=== PATIENT | female | born 1990 | race Caucasian/White ===

== ENCOUNTER 2017-02-01 14:56 | Inpatient (IN) | payer BC ==
[2017-02-01] MEDS ORDERED: Lactated Ringers 1,000 ML ONE (17:21)
[2017-02-01] MEDS ORDERED: Oxytocin/Lactated Ringers 10 UNIT/1,000 ML BAG IV ONE (17:22)
[2017-02-01] MEDS ORDERED: Nalbuphine 20 MG/1 ML Amp IVPUSH PRN (17:38)
[2017-02-01] MEDS ORDERED: Ondansetron 4 MG/2 ML SDV IVPUSH PRN (17:38)
[2017-02-01] MEDS ORDERED: Sodium Chloride 0.9% 10 ML Syringe FLUSH PRN (17:38)
--- NOTE | 2017-02-01 17:43 | PCM.LDHP ---
L&D History of Present Illness - General Date of Service: 02/01/17 Admit Problem/Dx: Patient Status Order with Admit Dx/Problem 02/01/17 15:31 Patient Status [ADT] Routine 02/01/17 17:39 Patient Status [ADT] Routine Admission Diagnosis/Problem Admission Diagnosis/Problem Source of Information: Patient History Limitations: Reports: No Limitations - History of Present Illness Introduction:: Patient is a 26 y/o at 38 0/7 wks. She was seen in clinic earlier today for routine appointment and noted issues with some intermittent headaches. BP' s in office were both upper limit of normal. This was a departure from her normal BP's. Was thus sent to L&D for serial BP's, labs, and NST. Otherwise doing well. No contractions. Getting good FM. 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 (Approximate): - Infectious Disease History Infectious Disease History: Reports: Other (See Below) ([place] Spotted Fever as a child) - Past Surgical History HEENT Surgical History: Reports: Oral Surgery (wisdom tooth extraction) Social & Family History - Tobacco Use Smoking Status *Q: Never Smoker Second Hand Smoke Exposure: No - Alcohol Use Alcohol Use History: No - Recreational Drug Use Recreational Drug Use: No H&P Review of Systems - Review of Systems: Review Of Systems: See Below General: Reports: No Symptoms Pulmonary: Reports: No Symptoms Cardiovascular: Reports: No Symptoms Gastrointestinal: Reports: No Symptoms Genitourinary: Reports: No Symptoms Musculoskeletal: Reports: No Symptoms Neurological: Reports: Headache (For a few days last week, not present currently ) L&D Exam - Exam Exam: See Below - Vital Signs Vital Signs: Last Vital Signs Temp Pulse 90 02/01/17 16:00 Resp BP 136/84 02/01/17 16:00 Pulse Ox Weight: 116.12 kg - OB Specific Contraction Intensity: Irritability Movement: Active Heart Tones: Present Heart Tones per Min: 150 Heart Rate (FHR) Variability: Moderate (6-25 bmp) Presentation: Vertex - Hernandez Score Hernandez Score Cervix Position: Posterior Hernandez Score Consistency: Soft Hernandez Score Effacement: >80% Hernandez Score Dilation: 1-2 cm Hernandez Score Infant's Station: -2 Hernandez Score Total: 7 - Exam General: Alert, Oriented, Cooperative Lungs: Clear to Auscultation, Normal Respiratory Effort Cardiovascular: Regular Rate, Regular Rhythm GI/Abdominal Exam: Soft, Non-Tender Genitourinary: Normal external exam Extremities: Normal Inspection Skin: Warm, Dry, Intact Neurological: Reflexes Equal Bilateral DTR: 2+: Patella (L), Patella (R) - Patient Data Lab Results Last 24 hrs: Laboratory Results - last 24 hr 02/01/17 02/01/17 02/01/17 Range/Units 15:50 15:50 15:50 WBC 9.85 (3.98-10.04) K/mm3 RBC 4.21 (3.98-5.22) M/mm3 Hgb 13.0 (11.2-15.7) gm/L Hct 37.2 (34.1-44.9) % MCV 88.4 (79.4-94.8) fl MCH 30.9 (25.6-32.2) pg MCHC 34.9 (32.2-35.5) g/dl RDW Std Deviation 40.4 (36.4-46.3) fL Plt Count 252 (182-369) K/mm3 MPV 10.1 (9.4-12.3) fl Creatinine 0.6 (0.55-1.02) mg/dL Est Cr Clr Drug Dosing 160.20 mL/min Estimated GFR (MDRD) > 60 (>60) mL/min AST 19 (15-37) U/L ALT 28 (14-59) U/L Blood Type A POSITIVE Gel Antibody Screen Negative Result Diagrams: 02/01/17 15:50 02/01/17 15:50 - Problem List (1) 38 weeks gestation of SNOMED Code(s): 09412428 ICD Code: Z3A.38 - 38 WEEKS GESTATION OF Status: Acute Current Visit: Yes (2) Gestational hypertension SNOMED Code(s): 50518307 ICD Code: O13.9 - GESTATIONAL HTN W/O SIGNIFICANT PROTEINURIA, UNSP TRIMESTER Status: Acute Current Visit: Yes Qualifiers: Trimester: third trimester Qualified Code(s): O13.3 - Gestational [ -induced] hypertension without significant proteinuria, third trimester (3) GBS (group B Streptococcus carrier), +RV culture, currently SNOMED Code(s): 28255904 ICD Code: O99.820 - STREPTOCOCCUS B CARRIER STATE COMPLICATING Status: Acute Current Visit: Yes Problem List Initiated/Reviewed/Updated: Yes Orders Last 24hrs: Active Orders 24 hr Category Date Time Status Patient Status [ADT] Routine ADT 02/01/17 15:31 Active Patient Status [ADT] Routine ADT 02/01/17 17:39 Active Communication Order [RC] ASDIRECTED Care 02/01/17 17:38 Active Communication Order [RC] ASDIRECTED Care 02/01/17 17:38 Active Communication Order [RC] ASDIRECTED Care 02/01/17 17:38 Active Heart Tones [RC] ASDIRECTED Care 02/01/17 17:38 Active Non Stress Test [RC] PER UNIT ROUTINE Care 02/01/17 15:31 Active Notify Provider [RC] ASDIRECTED Care 02/01/17 17:38 Active Notify Provider [RC] PRN Care 02/01/17 17:38 Active Peripheral IV Care [RC] . DIRECTED Care 02/01/17 17:38 Active Up ad Leeann [RC] ASDIRECTED Care 02/01/17 17:38 Active Vaginal Exam [RC] ASDIRECTED Care 02/01/17 17:38 Active Vital Signs [RC] ASDIRECTED Care 02/01/17 17:38 Active Vital Signs [RC] PER UNIT ROUTINE Care 02/01/17 15:31 Active Regular Diet [DIET] Diet 02/01/17 Dinner Active PATIENT RETYPE [BBK] Routine Lab 02/01/17 15:50 Results TYPE AND SCREEN [BBK] Routine Lab 02/01/17 15:50 Results Lactated Ringers [Ringers, Lactated] 1,000 ml Med 02/01/17 17:45 Ordered IV ASDIRECTED Nalbuphine [Nubain] Med 02/01/17 17:38 Ordered 10 mg IVPUSH Q2H PRN Ondansetron [Zofran] Med 02/01/17 17:38 Ordered 4 mg IVPUSH Q4H PRN Oxytocin/Lactated Ringers [Pitocin in LR 10 Units/1,000 Med 02/01/17 17:45 Ordered ML] 10 unit in 1,000 ml IV .CONTINUOUS Oxytocin/Lactated Ringers [Pitocin in LR 10 Units/1,000 Med 02/01/17 17:45 Ordered ML] 10 unit in 1,000 ml IV TITRATE Penicillin G Potassium [Pfizerpen] 2.5 millunits Med 02/01/17 17:45 Ordered Sodium Chloride 0.9% [Normal Saline] 100 ml IV Q4H Penicillin G Potassium [Pfizerpen] 5 millunits Med 02/01/17 17:45 Ordered Sodium Chloride 0.9% [Normal Saline] 100 ml IV ONETIME Sodium Chloride 0.9% [Saline Flush] Med 02/01/17 17:38 Ordered 10 ml FLUSH ASDIRECTED PRN Electronic Heart Tones Ext w TOCO [WOMSER] Oth 02/01/17 17:38 Ordered Routine Electronic Heart Tones Internal [WOMSER] Per Unit Ot 02/01/17 17:38 Ordered Routine Peripheral IV Insertion Adult [OM.PC] Routine Oth 02/01/17 17:38 Ordered Resuscitation Status Routine Resus Stat 02/01/17 15:31 Ordered Medication Orders Lactated Ringer's (Ringers, Lactated) 1,000 mls @ 40 mls/hr IV ASDIRECTED AROLDO Oxytocin/Lactated Ringer's (Pitocin In Lr 10 Units/1,000 Ml) 10 unit in 1,000 mls @ 12 mls/hr IV TITRATE AROLDO; 2 MUNITS/MIN PRN Reason: Protocol Penicillin G Potassium 5 (millunits/ Sodium Chloride) 100 mls @ 55 mls/hr IV ONETIME AROLDO Penicillin G Potassium 2.5 (millunits/ Sodium Chloride) 100 mls @ 55 mls/hr IV Q4H AROLDO Oxytocin/Lactated Ringer's (Pitocin In Lr 10 Units/1,000 Ml) 10 unit in 1,000 mls @ 500 mls/hr IV .CONTINUOUS AROLDO Nalbuphine HCl (Nubain) 10 mg IVPUSH Q2H PRN PRN Reason: Pain (moderate 4-6) Ondansetron HCl (Zofran) 4 mg IVPUSH Q4H PRN PRN Reason: Nausea/Vomiting Sodium Chloride (Saline Flush) 10 ml FLUSH ASDIRECTED PRN PRN Reason: Keep Vein Open Assessment/Plan Comment:: 26 y/o at 38 0/7 wks who presented for serial BP's/monitoring. Has had one severe range BP in addition to multiple mild range BP's. Recommend proceeding with IOL given gestational age. She agrees. Labs done and WNL. Will start PCN for GBS prophylaxis. Pitocin to be started for IOL. WIll consdier bolivar bulb placement later. Pain management per patient preference. Anticipate
[2017-02-01] MEDS ORDERED: Oxytocin/Lactated Ringers 10 UNIT/1,000 ML BAG IV SCH (17:45)
[2017-02-01] MEDS ORDERED: Penicillin G Potassium 5 MILLUNITS in Sodium Chloride 0.9% 100 ML IV SCH (18:00)
[2017-02-01] MEDS: Oxytocin/Lactated Ringers 10 UNIT/1,000 ML BAG IV SCH (18:15)
[2017-02-01] MEDS: Lactated Ringers 1,000 ML IV SCH (18:15)
--- NOTE | 2017-02-01 20:59 | PCM.PNLD ---
Labor Progress Note - VS & Meds Vital Signs: Last Vital Signs Temp 36.6 C 02/01/17 18:00 Pulse 90 02/01/17 18:00 Resp 18 02/01/17 18:00 BP 144/85 H 02/01/17 18:00 Pulse Ox Active Medications: Current Medications Lactated Ringer's (Ringers, Lactated) 1,000 mls @ 40 mls/hr IV ASDIRECTED AROLDO Last Admin: 02/01/17 18:15 Dose: 40 mls/hr Oxytocin/Lactated Ringer's (Pitocin In Lr 10 Units/1,000 Ml) 10 unit in 1,000 mls @ 12 mls/hr IV TITRATE AROLDO; 2 MUNITS/MIN PRN Reason: Protocol Last Titration: 02/01/17 20:24 Dose: 8 munits/min, 48 mls/hr Penicillin G Potassium 5 (millunits/ Sodium Chloride) 100 mls @ 55 mls/hr IV ONETIME AROLDO Last Admin: 02/01/17 18:38 Dose: 55 mls/hr Penicillin G Potassium 2.5 (millunits/ Sodium Chloride) 100 mls @ 55 mls/hr IV Q4H AROLDO Oxytocin/Lactated Ringer's (Pitocin In Lr 10 Units/1,000 Ml) 10 unit in 1,000 mls @ 500 mls/hr IV .CONTINUOUS AROLDO Nalbuphine HCl (Nubain) 10 mg IVPUSH Q2H PRN PRN Reason: Pain (moderate 4-6) Ondansetron HCl (Zofran) 4 mg IVPUSH Q4H PRN PRN Reason: Nausea/Vomiting Sodium Chloride (Saline Flush) 10 ml FLUSH ASDIRECTED PRN PRN Reason: Keep Vein Open Discontinued Medications Lactated Ringer's (Ringers, Lactated) Confirm Administered Dose 1,000 mls @ as directed .ROUTE .STK-MED ONE Stop: 02/01/17 17:22 Last Admin: 02/01/17 18:42 Dose: Not Given Oxytocin/Lactated Ringer's (Pitocin In Lr 10 Units/1,000 Ml) Confirm Administered Dose 10 unit in 1,000 mls @ as directed IV .STK-MED ONE Stop: 02/01/17 17:23 Last Admin: 02/01/17 18:42 Dose: Not Given - Uterine Contractions Uterine Monitoring Mode: External [place] Contraction Intensity: Mild to Moderate Uterine Resting Tone: Soft - Monitoring Monitor Mode: External Ultrasound Heart Rate (FHR) Baseline: 135 Heart Rate (FHR) Variability: Moderate (6-25 bmp) Accelerations: Present, 15x15 Decelerations: None Strip Review: Category I - Vaginal Exam Dilation (cm): 2.5 Effacement (Percent): 80 Station: -2 Cervical Position: Midposition - Labor Progress (Free Text) Labor Progress: Doing well. Pitocin at 8. Singer bulb placed to aid in induction process
[2017-02-01] MEDS ORDERED: Penicillin G Potassium 2.5 MILLUNITS in Sodium Chloride 0.9% 100 ML IV SCH (22:00)
[2017-02-01] MEDS: Penicillin G Potassium 2.5 MILLUNITS in Sodium Chloride 0.9% 100 ML IV SCH (22:50)
[2017-02-02] MEDS ORDERED: fentaNYL 100 MCG/2 ML SDV EPIDUR PRN ×2 (01:00→08:29)
[2017-02-02] MEDS ORDERED: ePHEDrine 50 MG/ML SDV IVPUSH PRN ×2 (01:00→08:29)
[2017-02-02] MEDS ORDERED: Ondansetron 4 MG/2 ML SDV IVPUSH PRN (01:00)
[2017-02-02] MEDS ORDERED: Bupivacaine/fentaNYL/NS 100 ML Bag EPIDUR SCH ×2 (01:00→08:30)
--- NOTE | 2017-02-02 01:07 | PCM.PREANE ---
Preanesthetic Assessment - Anesthesia/Transfusion/Family Hx Anesthesia History: No Prior Anesthesia Family History of Anesthesia Reaction: No Transfusion History: No Prior Transfusion(s) Intubation History: Unknown - Review of Systems General: No Symptoms Pulmonary: No Symptoms Cardiovascular: No Symptoms (PIH), Palpitations Gastrointestinal: No Symptoms Neurological: No Symptoms Other: Reports: None - Physical Assessment NPO Status Date: 02/01/17 NPO Status Time: 23:30 Pulse: 90 O2 Sat by Pulse Oximetry: 99 Respiratory Rate: 18 Blood Pressure: 136/84 Temperature: 36.6 C Vital Signs: Last Vital Signs Temp 36.6 C 02/01/17 18:00 Pulse 90 02/01/17 18:00 Resp 18 02/01/17 18:00 BP 144/85 H 02/01/17 18:00 Pulse Ox Height: 1.8 m Weight: 116.12 kg ASA Class: 2 Mental Status: Alert & Oriented x3 Airway Class: Mallampati = 2 Dentition: Reports: Normal Dentition, Caries Thyro-Mental Finger Breadths: 3 Mouth Opening Finger Breadths: 3 ROM/Head Extension: Full Lungs: Clear to Auscultation, Normal Respiratory Effort Cardiovascular: Regular Rate, Regular Rhythm, No Murmurs - Lab Values: Laboratory Last Values WBC 9.85 K/mm3 (3.98-10.04) 02/01/17 15:50 RBC 4.21 M/mm3 (3.98-5.22) 02/01/17 15:50 Hgb 13.0 gm/L (11.2-15.7) 02/01/17 15:50 Hct 37.2 % (34.1-44.9) 02/01/17 15:50 MCV 88.4 fl (79.4-94.8) 02/01/17 15:50 MCH 30.9 pg (25.6-32.2) 02/01/17 15:50 MCHC 34.9 g/dl (32.2-35.5) 02/01/17 15:50 RDW Std Deviation 40.4 fL (36.4-46.3) 02/01/17 15:50 Plt Count 252 K/mm3 (182-369) 02/01/17 15:50 MPV 10.1 fl (9.4-12.3) 02/01/17 15:50 Creatinine 0.6 mg/dL (0.55-1.02) 02/01/17 15:50 Est Cr Clr Drug Dosing 160.20 mL/min 02/01/17 15:50 Estimated GFR (MDRD) > 60 mL/min (>60) 02/01/17 15:50 AST 19 U/L (15-37) 02/01/17 15:50 ALT 28 U/L (14-59) 02/01/17 15:50 Blood Type A POSITIVE 02/01/17 15:50 Gel Antibody Screen Negative 02/01/17 15:50 Above labs reviewed and noted. 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 OB/BYN History: PIH - Infectious Disease History Infectious Disease History: Reports: Other (See Below) ([place] Spotted Fever as a child) - Past Surgical History HEENT Surgical History: Reports: Oral Surgery (wisdom tooth extraction) - SUBSTANCE USE Smoking Status *Q: Never Smoker Second Hand Smoke Exposure: No Recreational Drug Use History: No - HOME MEDS Home Medications: Home Meds predniSONE [Prednisone] 20 mg PO DAILY #2 tablet 02/18/15 [Rx] - CURRENT (IN HOUSE) MEDS Current Meds: Current Medications Lactated Ringer's (Ringers, Lactated) 1,000 mls @ 40 mls/hr IV ASDIRECTED AROLDO Last Admin: 02/01/17 18:15 Dose: 40 mls/hr Oxytocin/Lactated Ringer's (Pitocin In Lr 10 Units/1,000 Ml) 10 unit in 1,000 mls @ 12 mls/hr IV TITRATE AROLDO; 2 MUNITS/MIN PRN Reason: Protocol Last Titration: 02/02/17 00:23 Dose: 10 munits/min, 60 mls/hr Penicillin G Potassium 5 (millunits/ Sodium Chloride) 100 mls @ 55 mls/hr IV ONETIME AROLDO Last Admin: 02/01/17 18:38 Dose: 55 mls/hr Oxytocin/Lactated Ringer's (Pitocin In Lr 10 Units/1,000 Ml) 10 unit in 1,000 mls @ 500 mls/hr IV .CONTINUOUS AROLDO Penicillin G Potassium 2.5 (millunits/ Sodium Chloride) 100 mls @ 100 mls/hr IV Q4H [facility] Last Admin: 02/01/17 22:50 Dose: 100 mls/hr Nalbuphine HCl (Nubain) 10 mg IVPUSH Q2H PRN PRN Reason: Pain (moderate 4-6) Ondansetron HCl (Zofran) 4 mg IVPUSH Q4H PRN PRN Reason: Nausea/Vomiting Sodium Chloride (Saline Flush) 10 ml FLUSH ASDIRECTED PRN PRN Reason: Keep Vein Open Discontinued Medications Lactated Ringer's (Ringers, Lactated) Confirm Administered Dose 1,000 mls @ as directed .ROUTE .STK-MED ONE Stop: 02/01/17 17:22 Last Admin: 02/01/17 18:42 Dose: Not Given Oxytocin/Lactated Ringer's (Pitocin In Lr 10 Units/1,000 Ml) Confirm Administered Dose 10 unit in 1,000 mls @ as directed IV .STK-MED ONE Stop: 02/01/17 17:23 Last Admin: 02/01/17 18:42 Dose: Not Given Penicillin G Potassium 2.5 (millunits/ Sodium Chloride) 100 mls @ 55 mls/hr IV Q4H [facility]
[2017-02-02] MEDS: Penicillin G Potassium 2.5 MILLUNITS in Sodium Chloride 0.9% 100 ML IV SCH ×3 (02:46→10:56)
--- NOTE | 2017-02-02 04:28 | PCM.PNLD ---
Labor Progress Note - VS & Meds Vital Signs: Last Vital Signs Temp 36.6 C 02/02/17 01:08 Pulse 90 02/02/17 01:08 Resp 18 02/02/17 01:08 BP 136/84 02/02/17 01:08 Pulse Ox 99 02/02/17 01:08 Active Medications: Current Medications Ephedrine Sulfate (Ephedrine Sulfate) 5 mg IVPUSH ASDIRECTED PRN PRN Reason: Hypotension Fentanyl (Sublimaze) 100 mcg EPIDUR Q3H PRN PRN Reason: Pain Fentanyl/Bupivacaine HCl (Fentanyl/Bupivacaine/Ns 2 Mcg-0.125% 100 Ml) 100 ml EPIDUR ASDIRECTED AROLDO Lactated Ringer's (Ringers, Lactated) 1,000 mls @ 40 mls/hr IV ASDIRECTED AROLDO Last Admin: 02/01/17 18:15 Dose: 40 mls/hr Oxytocin/Lactated Ringer's (Pitocin In Lr 10 Units/1,000 Ml) 10 unit in 1,000 mls @ 12 mls/hr IV TITRATE AROLDO; 2 MUNITS/MIN PRN Reason: Protocol Last Titration: 02/02/17 02:47 Dose: 16 munits/min, 96 mls/hr Penicillin G Potassium 5 (millunits/ Sodium Chloride) 100 mls @ 55 mls/hr IV ONETIME AROLDO Last Admin: 02/01/17 18:38 Dose: 55 mls/hr Oxytocin/Lactated Ringer's (Pitocin In Lr 10 Units/1,000 Ml) 10 unit in 1,000 mls @ 500 mls/hr IV .CONTINUOUS AROLDO Penicillin G Potassium 2.5 (millunits/ Sodium Chloride) 100 mls @ 100 mls/hr IV Q4H AROLDO Last Admin: 02/02/17 02:46 Dose: 100 mls/hr Nalbuphine HCl (Nubain) 10 mg IVPUSH Q2H PRN PRN Reason: Pain (moderate 4-6) Ondansetron HCl (Zofran) 4 mg IVPUSH Q4H PRN PRN Reason: Nausea/Vomiting Ondansetron HCl (Zofran) 4 mg IVPUSH ONETIME PRN PRN Reason: Nausea/Vomiting Sodium Chloride (Saline Flush) 10 ml FLUSH ASDIRECTED PRN PRN Reason: Keep Vein Open Discontinued Medications Lactated Ringer's (Ringers, Lactated) Confirm Administered Dose 1,000 mls @ as directed .ROUTE .STK-MED ONE Stop: 02/01/17 17:22 Last Admin: 02/01/17 18:42 Dose: Not Given Oxytocin/Lactated Ringer's (Pitocin In Lr 10 Units/1,000 Ml) Confirm Administered Dose 10 unit in 1,000 mls @ as directed IV .STK-MED ONE Stop: 02/01/17 17:23 Last Admin: 02/01/17 18:42 Dose: Not Given Penicillin G Potassium 2.5 (millunits/ Sodium Chloride) 100 mls @ 55 mls/hr IV Q4H AROLDO - Uterine Contractions Uterine Monitoring Mode: External Bell Contraction Intensity: Mild to Moderate Uterine Resting Tone: Soft - Monitoring Monitor Mode: External Ultrasound Heart Rate (FHR) Baseline: 150 Heart Rate (FHR) Variability: Moderate (6-25 bmp) Accelerations: Present, 15x15 Decelerations: None Strip Review: Category I - Vaginal Exam Dilation (cm): 4 Effacement (Percent): 80 Station: -2 Cervical Position: Midposition - Labor Progress (Free Text) Labor Progress: Patient doing well. On 16 of pitocin. Rates contractions mild-moderate. Declines ROM for now. Interested in epidural soon. BP's normal overnight
[2017-02-02] MEDS: Lactated Ringers 1,000 ML IV SCH (06:48)
--- NOTE | 2017-02-02 07:13 | PCM.PNLD ---
Labor Progress Note - VS & Meds Vital Signs: Last Vital Signs Temp 36.6 C 02/02/17 01:08 Pulse 90 02/02/17 01:08 Resp 18 02/02/17 01:08 BP 136/84 02/02/17 01:08 Pulse Ox 99 02/02/17 01:08 Active Medications: Current Medications Ephedrine Sulfate (Ephedrine Sulfate) 5 mg IVPUSH ASDIRECTED PRN PRN Reason: Hypotension Fentanyl (Sublimaze) 100 mcg EPIDUR Q3H PRN PRN Reason: Pain Fentanyl/Bupivacaine HCl (Fentanyl/Bupivacaine/Ns 2 Mcg-0.125% 100 Ml) 100 ml EPIDUR ASDIRECTED AROLDO Lactated Ringer's (Ringers, Lactated) 1,000 mls @ 40 mls/hr IV ASDIRECTED AROLDO Last Admin: 02/02/17 06:48 Dose: 40 mls/hr Oxytocin/Lactated Ringer's (Pitocin In Lr 10 Units/1,000 Ml) 10 unit in 1,000 mls @ 12 mls/hr IV TITRATE AROLDO; 2 MUNITS/MIN PRN Reason: Protocol Last Titration: 02/02/17 06:35 Dose: 20 munits/min, 120 mls/hr Penicillin G Potassium 5 (millunits/ Sodium Chloride) 100 mls @ 55 mls/hr IV ONETIME AROLDO Last Admin: 02/01/17 18:38 Dose: 55 mls/hr Oxytocin/Lactated Ringer's (Pitocin In Lr 10 Units/1,000 Ml) 10 unit in 1,000 mls @ 500 mls/hr IV .CONTINUOUS AROLDO Penicillin G Potassium 2.5 (millunits/ Sodium Chloride) 100 mls @ 100 mls/hr IV Q4H AROLDO Last Admin: 02/02/17 06:34 Dose: 100 mls/hr Nalbuphine HCl (Nubain) 10 mg IVPUSH Q2H PRN PRN Reason: Pain (moderate 4-6) Ondansetron HCl (Zofran) 4 mg IVPUSH Q4H PRN PRN Reason: Nausea/Vomiting Ondansetron HCl (Zofran) 4 mg IVPUSH ONETIME PRN PRN Reason: Nausea/Vomiting Sodium Chloride (Saline Flush) 10 ml FLUSH ASDIRECTED PRN PRN Reason: Keep Vein Open Discontinued Medications Lactated Ringer's (Ringers, Lactated) Confirm Administered Dose 1,000 mls @ as directed .ROUTE .STK-MED ONE Stop: 02/01/17 17:22 Last Admin: 02/01/17 18:42 Dose: Not Given Oxytocin/Lactated Ringer's (Pitocin In Lr 10 Units/1,000 Ml) Confirm Administered Dose 10 unit in 1,000 mls @ as directed IV .STK-MED ONE Stop: 02/01/17 17:23 Last Admin: 02/01/17 18:42 Dose: Not Given Penicillin G Potassium 2.5 (millunits/ Sodium Chloride) 100 mls @ 55 mls/hr IV Q4H AROLDO - Uterine Contractions Uterine Monitoring Mode: External [place] Contraction Intensity: Mild to Moderate Uterine Resting Tone: Soft - Monitoring Monitor Mode: External Ultrasound Heart Rate (FHR) Baseline: 135 Heart Rate (FHR) Variability: Moderate (6-25 bmp) Accelerations: Present, 15x15 Decelerations: None Strip Review: Category I - Vaginal Exam Dilation (cm): 4-5 Effacement (Percent): 80 Station: -2 Cervical Position: Midposition - Labor Progress (Free Text) Labor Progress: Patient doing well. Pitocin at 20. Starting to feel more uncomfortable. BP's normal to upper normal range. AROM performed with release of clear fluid. Continue present management
[2017-02-02] MEDS: Oxytocin/Lactated Ringers 10 UNIT/1,000 ML BAG IV SCH (08:10)
[2017-02-02] MEDS ORDERED: diphenhydrAMINE 50 MG/ML SDV IVPUSH PRN (08:29)
[2017-02-02] MEDS ORDERED: Lidocaine 1% 50 ML MDV ONE (10:19)
--- NOTE | 2017-02-02 13:08 | PCM.DEL ---
L & D Note - General Info Date of Service: 02/02/17 - Delivery Note Labor: Induced by ARM, Induced by Oxytocin Cervical Ripening Method: Balloon Device Delivery Outcome: Livebirth Infant Delivery Method: Spontaneous Vaginal Delivery-Single Infant Delivery Mode: Spontaneous Presentation: Right Occiput Anterior (PIERRE) Nuchal Cord: None Anesthesia Type: Epidural Amniotic Fluid Description: Clear Episiotomy Type: None Laceration: 2nd Degree, Perineal Suture type: Vicryl Suture size: 2-0 Placenta: Intact, Spontaneous Cord: 3 Vessels Estimated Blood Loss: 250 Resuscitation Needed: Yes [place]: Bulb Syringe, Stimulated, Warmed, [place] Used Score 1 min: 8 Score 5 min: 9 Delivery Comments (Free Text/Narrative):: Patient found to be complete and began pushing. With maternal pushing effort head delivered from an PIERRE presentation. No nuchal cord present. With gentle downward traction the shoulders and body delivered. Infant placed on maternal abdomen. Cord clamped and cut. Cord blood obtained. Placenta allowed time to separate and then spontaneously expelled. Inspection of the perineum showed a second-degree laceration. With a 2-0 Vicryl in the typical fashion - Patient Data Vitals - Most Recent: Last Vital Signs Temp 36.6 C 02/02/17 01:08 Pulse 90 02/02/17 01:08 Resp 18 02/02/17 01:08 BP 136/84 02/02/17 01:08 Pulse Ox 99 02/02/17 01:08 Weight - Most Recent: 116.12 kg I&O - Last 24 Hours: Intake & Output 02/01/17 02/02/17 02/02/17 22:59 06:59 14:59 Intake Total 0 240 Balance 0 240 Lab Results Last 24 Hours: Laboratory Results - last 24 hr 02/01/17 02/01/17 02/01/17 Range/Units 15:50 15:50 15:50 WBC 9.85 (3.98-10.04) K/mm3 RBC 4.21 (3.98-5.22) M/mm3 Hgb 13.0 (11.2-15.7) gm/L Hct 37.2 (34.1-44.9) % MCV 88.4 (79.4-94.8) fl MCH 30.9 (25.6-32.2) pg MCHC 34.9 (32.2-35.5) g/dl RDW Std Deviation 40.4 (36.4-46.3) fL Plt Count 252 (182-369) K/mm3 MPV 10.1 (9.4-12.3) fl Creatinine 0.6 (0.55-1.02) mg/dL Est Cr Clr Drug Dosing 160.20 mL/min Estimated GFR (MDRD) > 60 (>60) mL/min AST 19 (15-37) U/L ALT 28 (14-59) U/L Blood Type A POSITIVE Gel Antibody Screen Negative Med Orders - Current: Current Medications Diphenhydramine HCl (Benadryl) 25 mg IVPUSH Q6H PRN PRN Reason: Itching Ephedrine Sulfate (Ephedrine Sulfate) 5 mg IVPUSH ASDIRECTED PRN PRN Reason: Hypotension Ephedrine Sulfate (Ephedrine Sulfate) 5 mg IVPUSH ASDIRECTED PRN PRN Reason: HYPOTENTSION Fentanyl (Sublimaze) 100 mcg EPIDUR Q3H PRN PRN Reason: Pain Fentanyl (Sublimaze) 100 mcg EPIDUR Q3H PRN PRN Reason: PAIN Last Admin: 02/02/17 08:52 Dose: 100 mcg Fentanyl/Bupivacaine HCl (Fentanyl/Bupivacaine/Ns 2 Mcg-0.125% 100 Ml) 100 ml EPIDUR ASDIRECTED AROLDO Last Admin: 02/02/17 08:53 Dose: 100 ml Fentanyl/Bupivacaine HCl (Fentanyl/Bupivacaine/Ns 2 Mcg-0.125% 100 Ml) 100 ml EPIDUR ASDIRECTED AROLDO Lactated Ringer's (Ringers, Lactated) 1,000 mls @ 40 mls/hr IV ASDIRECTED AROLDO Last Admin: 02/02/17 06:48 Dose: 40 mls/hr Oxytocin/Lactated Ringer's (Pitocin In Lr 10 Units/1,000 Ml) 10 unit in 1,000 mls @ 12 mls/hr IV TITRATE AROLDO; 2 MUNITS/MIN PRN Reason: Protocol Last Admin: 02/02/17 08:10 Dose: 20 munits/min, 120 mls/hr Penicillin G Potassium 5 (millunits/ Sodium Chloride) 100 mls @ 55 mls/hr IV ONETIME AROLDO Last Admin: 02/01/17 18:38 Dose: 55 mls/hr Oxytocin/Lactated Ringer's (Pitocin In Lr 10 Units/1,000 Ml) 10 unit in 1,000 mls @ 500 mls/hr IV .CONTINUOUS [facility] Penicillin G Potassium 2.5 (millunits/ Sodium Chloride) 100 mls @ 100 mls/hr IV Q4H [facility] Last Admin: 02/02/17 10:56 Dose: 100 mls/hr Nalbuphine HCl (Nubain) 10 mg IVPUSH Q2H PRN PRN Reason: Pain (moderate 4-6) Ondansetron HCl (Zofran) 4 mg IVPUSH Q4H PRN PRN Reason: Nausea/Vomiting Ondansetron HCl (Zofran) 4 mg IVPUSH ONETIME PRN PRN Reason: Nausea/Vomiting Sodium Chloride (Saline Flush) 10 ml FLUSH ASDIRECTED PRN PRN Reason: Keep Vein Open Discontinued Medications Lactated Ringer's (Ringers, Lactated) Confirm Administered Dose 1,000 mls @ as directed .ROUTE .[employer] ONE Stop: 02/01/17 17:22 Last Admin: 02/01/17 18:42 Dose: Not Given Oxytocin/Lactated Ringer's (Pitocin In Lr 10 Units/1,000 Ml) Confirm Administered Dose 10 unit in 1,000 mls @ as directed IV .STK-MED ONE Stop: 02/01/17 17:23 Last Admin: 02/01/17 18:42 Dose: Not Given Penicillin G Potassium 2.5 (millunits/ Sodium Chloride) 100 mls @ 55 mls/hr IV Q4H [facility] Lidocaine HCl (Xylocaine 1%) Confirm Administered Dose 50 ml .ROUTE .STK-MED ONE Stop: 02/02/17 10:20 - Problem List & Annotations (1) 38 weeks gestation of SNOMED Code(s): 00024142 Code(s): Z3A.38 - 38 WEEKS GESTATION OF Status: Acute Current Visit: Yes (2) Gestational hypertension SNOMED Code(s): 28224107 Code(s): O13.9 - GESTATIONAL HTN W/O SIGNIFICANT PROTEINURIA, UNSP TRIMESTER Status: Acute Current Visit: Yes Qualifiers: Trimester: third trimester Qualified Code(s): O13.3 - Gestational [ -induced] hypertension without significant proteinuria, third trimester (3) GBS (group B Streptococcus carrier), +RV culture, currently SNOMED Code(s): 73520720 Code(s): O99.820 - STREPTOCOCCUS B CARRIER STATE COMPLICATING Status: Acute Current Visit: Yes (4) Vaginal delivery SNOMED Code(s): 582458415 Code(s): O80 - ENCOUNTER FOR FULL-TERM UNCOMPLICATED DELIVERY Status: Acute Current Visit: Yes - Problem List Review Problem List Initiated/Reviewed/Updated: Yes - My Orders Last 24 Hours: My Active Orders 02/01/17 15:31 Patient Status [ADT] Routine Vital Signs [RC] PER UNIT ROUTINE Resuscitation Status Routine 02/01/17 17:38 Communication Order [RC] ASDIRECTED Communication Order [RC] ASDIRECTED Communication Order [RC] ASDIRECTED Notify Provider [RC] ASDIRECTED Notify Provider [RC] PRN Peripheral IV Care [RC] . DIRECTED Up ad Leeann [RC] ASDIRECTED Vital Signs [RC] ASDIRECTED Nalbuphine [Nubain] 10 mg IVPUSH Q2H PRN Ondansetron [Zofran] 4 mg IVPUSH Q4H PRN Sodium Chloride 0.9% [Saline Flush] 10 ml FLUSH ASDIRECTED PRN Electronic Heart Tones Ext w TOCO [WOMSER] Routine Electronic Heart Tones Internal [WOMSER] Per Unit Routine Peripheral IV Insertion Adult [OM.PC] Routine 02/01/17 17:39 Patient Status [ADT] Routine 02/01/17 17:45 Lactated Ringers [Ringers, Lactated] 1,000 ml IV ASDIRECTED Oxytocin/Lactated Ringers [Pitocin in LR 10 Units/1,000 ML] 10 unit in 1,000 ml IV .CONTINUOUS Oxytocin/Lactated Ringers [Pitocin in LR 10 Units/1,000 ML] 10 unit in 1,000 ml IV TITRATE 02/01/17 18:00 Penicillin G Potassium [Pfizerpen] 5 millunits Sodium Chloride 0.9% [Normal Saline] 100 ml IV ONETIME 02/01/17 22:30 Penicillin G Potassium [Pfizerpen] 2.5 millunits Sodium Chloride 0.9% [Normal Saline] 100 ml IV Q4H 02/01/17 Dinner Regular Diet [DIET] 02/02/17 13:01 Patient Status Manage Transfer [TRANSFER] Routine - Assessment Assessment:: 26-year-old day #0 from vaginal delivery after induction of labor at 38 1/7 weeks for concerns of gestational hypertension - Plan Plan:: * Routine cares * Encourage breast feeding * Discharge home in 2 days * Monitor BP's closely
[2017-02-02] MEDS ORDERED: Witch Hazel Medicated Pads 100/Jar TOP PRN (13:19)
[2017-02-02] MEDS ORDERED: Acetaminophen 325 MG Tab PO PRN (13:19)
[2017-02-02] MEDS ORDERED: Benzocaine/Menthol 20%-0.5% Spray 56 GM Canister TOP PRN (13:19)
[2017-02-02] MEDS ORDERED: Lanolin 100% Cream 7 GM Tube TOP PRN (13:19)
[2017-02-02] MEDS: Ibuprofen 600 MG Tab PO PRN (14:22)
[2017-02-02] MEDS: Docusate Sodium 100 MG Cap PO PRN (14:22)
[2017-02-02] MEDS ORDERED: Bupivacaine 0.25% 10 ML SDV ONE (22:22)
[2017-02-03] MEDS: Ibuprofen 600 MG Tab PO PRN ×3 (00:40→19:59)
--- NOTE | 2017-02-03 06:51 | PCM.PNPP ---
- General Info Date of Service: 02/03/17 Functional Status: Reports: Pain Controlled, Tolerating Diet, Ambulating, Urinating - Review of Systems General: Reports: No Symptoms Pulmonary: Reports: No Symptoms Cardiovascular: Reports: No Symptoms Gastrointestinal: Reports: No Symptoms Genitourinary: Reports: No Symptoms Musculoskeletal: Reports: No Symptoms - Patient Data Vital Signs - Most Recent: Last Vital Signs Temp 36.3 C 02/03/17 04:36 Pulse 71 02/03/17 04:36 Resp 16 02/03/17 04:36 BP 130/78 02/03/17 04:36 Pulse Ox 98 02/03/17 04:36 Weight - Most Recent: 116.12 kg I&O - Last 24 Hours: Intake & Output 02/02/17 02/02/17 02/03/17 14:59 22:59 06:59 Intake Total 240 240 Balance 240 240 Med Orders - Current: Current Medications Acetaminophen (Tylenol) 650 mg PO Q4H PRN PRN Reason: mild pain or fever Benzocaine/Menthol (Dermoplast Pain Relief [place]) 0 gm TOP ASDIRECTED PRN PRN Reason: Perineal Comfort Measure Docusate Sodium (Colace) 100 mg PO BID PRN PRN Reason: Constipation Last Admin: 02/02/17 14:22 Dose: 100 mg Emollient Ointment (Lansinoh Hpa) 0 gm TOP ASDIRECTED PRN PRN Reason: Sore Nipples Ibuprofen (Motrin) 600 mg PO Q6H PRN PRN Reason: Mild pain or fever Last Admin: 02/03/17 00:40 Dose: 600 mg Witch Cherelle (Tucks) 1 pad TOP ASDIRECTED PRN PRN Reason: Hemorrhoid pain Last Admin: 02/02/17 14:21 Dose: 1 jar Discontinued Medications Diphenhydramine HCl (Benadryl) 25 mg IVPUSH Q6H PRN PRN Reason: Itching Ephedrine Sulfate (Ephedrine Sulfate) 5 mg IVPUSH ASDIRECTED PRN PRN Reason: Hypotension Ephedrine Sulfate (Ephedrine Sulfate) 5 mg IVPUSH ASDIRECTED PRN PRN Reason: HYPOTENTSION Fentanyl (Sublimaze) 100 mcg EPIDUR Q3H PRN PRN Reason: Pain Fentanyl (Sublimaze) 100 mcg EPIDUR Q3H PRN PRN Reason: PAIN Last Admin: 02/02/17 08:52 Dose: 100 mcg Fentanyl/Bupivacaine HCl (Fentanyl/Bupivacaine/Ns 2 Mcg-0.125% 100 Ml) 100 ml EPIDUR ASDIRECTED AROLDO Last Admin: 02/02/17 08:53 Dose: 100 ml Fentanyl/Bupivacaine HCl (Fentanyl/Bupivacaine/Ns 2 Mcg-0.125% 100 Ml) 100 ml EPIDUR ASDIRECTED AROLDO Lactated Ringer's (Ringers, Lactated) Confirm Administered Dose 1,000 mls @ as directed .ROUTE .STK-MED ONE Stop: 02/01/17 17:22 Last Admin: 02/01/17 18:42 Dose: Not Given Oxytocin/Lactated Ringer's (Pitocin In Lr 10 Units/1,000 Ml) Confirm Administered Dose 10 unit in 1,000 mls @ as directed IV .STK-MED ONE Stop: 02/01/17 17:23 Last Admin: 02/01/17 18:42 Dose: Not Given Lactated Ringer's (Ringers, Lactated) 1,000 mls @ 40 mls/hr IV ASDIRECTED AROLDO Last Admin: 02/02/17 06:48 Dose: 40 mls/hr Oxytocin/Lactated Ringer's (Pitocin In Lr 10 Units/1,000 Ml) 10 unit in 1,000 mls @ 12 mls/hr IV TITRATE AROLDO; 2 MUNITS/MIN PRN Reason: Protocol Last Admin: 02/02/17 08:10 Dose: 20 munits/min, 120 mls/hr Penicillin G Potassium 5 (millunits/ Sodium Chloride) 100 mls @ 55 mls/hr IV ONETIME AROLDO Last Admin: 02/01/17 18:38 Dose: 55 mls/hr Penicillin G Potassium 2.5 (millunits/ Sodium Chloride) 100 mls @ 55 mls/hr IV Q4H AROLDO Last Admin: 02/02/17 16:13 Dose: Not Given Oxytocin/Lactated Ringer's (Pitocin In Lr 10 Units/1,000 Ml) 10 unit in 1,000 mls @ 500 mls/hr IV .CONTINUOUS AROLDO Penicillin G Potassium 2.5 (millunits/ Sodium Chloride) 100 mls @ 100 mls/hr IV Q4H AROLDO Last Admin: 02/02/17 10:56 Dose: 100 mls/hr Lidocaine HCl (Xylocaine 1%) Confirm Administered Dose 50 ml .ROUTE .STK-MED ONE Stop: 02/02/17 10:20 Last Admin: 02/02/17 16:13 Dose: Not Given Nalbuphine HCl (Nubain) 10 mg IVPUSH Q2H PRN PRN Reason: Pain (moderate 4-6) Ondansetron HCl (Zofran) 4 mg IVPUSH Q4H PRN PRN Reason: Nausea/Vomiting Ondansetron HCl (Zofran) 4 mg IVPUSH ONETIME PRN PRN Reason: Nausea/Vomiting Sodium Chloride (Saline Flush) 10 ml FLUSH ASDIRECTED PRN PRN Reason: Keep Vein Open - Interaction Disposition, : [place] in Room with Family Interaction: Holding Infant Feeding: Attempted ; Nursed Fair/Poor - Recovery Exam Fundal Tone: Firm Fundal Level: 1 Fingerbreadths Below Umbilicus Fundal Placement: Midline Lochia Amount: Small Lochia Color: Rubra/Red Bladder Status: Voiding Urinary Elimination: Voided - Exam General: Alert, Oriented, Cooperative GI/Abdominal Exam: Soft, Non-Tender Extremities: Normal Inspection Skin: Warm, Dry, Intact - Problem List & Annotations (1) 38 weeks gestation of SNOMED Code(s): 09033109 Code(s): Z3A.38 - 38 WEEKS GESTATION OF Status: Acute Current Visit: Yes (2) Gestational hypertension SNOMED Code(s): 29884039 Code(s): O13.9 - GESTATIONAL HTN W/O SIGNIFICANT PROTEINURIA, UNSP TRIMESTER Status: Acute Current Visit: Yes Qualifiers: Trimester: third trimester Qualified Code(s): O13.3 - Gestational [ -induced] hypertension without significant proteinuria, third trimester (3) GBS (group B Streptococcus carrier), +RV culture, currently SNOMED Code(s): 90897098 Code(s): O99.820 - STREPTOCOCCUS B CARRIER STATE COMPLICATING Status: Acute Current Visit: Yes (4) Vaginal delivery SNOMED Code(s): 893439974 Code(s): O80 - ENCOUNTER FOR FULL-TERM UNCOMPLICATED DELIVERY Status: Acute Current Visit: Yes - Problem List Review Problem List Initiated/Reviewed/Updated: Yes - My Orders Last 24 Hours: My Active Orders 02/02/17 13:19 Activity as Tolerated [RC] PER UNIT ROUTINE Vital Signs [RC] 04,12,20 Acetaminophen [Tylenol] 650 mg PO Q4H PRN Benzocaine/Menthol [Dermoplast Pain Relief [place]] See Dose Instructions TOP ASDIRECTED PRN Docusate Sodium [Colace] 100 mg PO BID PRN Ibuprofen [Motrin] 600 mg PO Q6H PRN Lanolin [Lansinoh HPA] See Dose Instructions TOP ASDIRECTED PRN Witch Cherelle [Tucks] 1 pad TOP ASDIRECTED PRN Assess Lochia [WOMSER] Per Unit Routine Assess Uterine Involution [WOMSER] Per Unit Routine Breast Pump [WOMSER] Per Unit Routine Heat Therapy [OM.PC] PRN Ice Therapy [OM.PC] Per Unit Routine Perineal Care [OM.PC] Per Unit Routine Peripheral IV Discontinue [OM.PC] Routine Sitz Bath [OM.PC] Per Unit Routine 02/02/17 Lunch Regular Diet [DIET] 02/03/17 13:19 Heat Therapy [OM.PC] PRN - Assessment Assessment:: 26-year-old day #1 from vaginal delivery after induction of labor at 38 1/7 weeks for concerns of gestational hypertension - Plan Plan:: * Routine cares * Encourage breast feeding * Discharge home tomorrow * Monitor BP's closely - have been normal since delivery
--- NOTE | 2017-02-03 15:00 | PCM48HPAN ---
Post Anesthesia Note - EVALUATION WITHIN 48HRS OF ANESTHETIC Vital Signs in Normal Range: Yes Patient Participated in Evaluation: Yes Respiratory Function Stable: Yes Airway Patent: Yes Cardiovascular Function Stable: Yes Hydration Status Stable: Yes Pain Control Satisfactory: Yes Nausea and Vomiting Control Satisfactory: Yes Mental Status Recovered: Yes
[2017-02-04] MEDS: Docusate Sodium 100 MG Cap PO PRN (03:35)
[2017-02-04 03:47] VITALS: BP 116/74
--- NOTE | 2017-02-04 09:09 | PCM.DCSUM1 ---
Discharge Summary - Hospital Course Free Text/Narrative:: The patient is a 26-year-old 1 para 1001 and was induced on 02/02/2017 for gestational hypertension. She underwent artificial rupture membranes with balloon type induction along with Pitocin. She progressed through labor and delivered a viable female with Apgars of 8 and 9. patient has done very well. She is nursing without problems, ambulating well. She has minimal lochia, is voiding well and is desiring discharge home. - Discharge Data Discharge Date: 02/04/17 Discharge Disposition: Home, Self-Care 01 Condition: Good - Patient Instructions Diet: Regular Diet as Tolerated (Nursing diet was increased calories and calcium as recommended) Activity: As Tolerated (No intercourse or tampons until bleeding resolves.) Driving: May Drive Today Showering/Bathing: May Shower (May take a bath) Notify Provider of: Fever, Increased Pain, Swelling and Redness, Nausea and/or Vomiting - Discharge Plan Home Medications: Home Meds predniSONE [Prednisone] 20 mg PO DAILY #2 tablet 02/18/15 [Rx] Ibuprofen [IJD: Ibuprofen] 600 mg PO Q6H PRN tablet 02/04/17 [Rx] Patient Handouts: Mastitis, [id number], Vaginal Delivery, Care After, Breast Pumping Tips, [id number], Challenges and Solutions Referrals: Radha Turner MD [Physician] - (Return to clinicDr. Turner3 weeks. ) - Discharge Summary/Plan Comment DC Time >30 min.: No Discharge Summary/Plan Comment: Discharge instructions: 1. Discharge home 2. Diet, activity and follow-up discussed with patient. Recommend nursing diet with increased calories and calcium. 3. Precautions given concern increased pain, bleeding, temperature, signs/ symptoms of DVT/PE. 4. Medications per home medication was printed, discussed with and given to the patient. 5. Return to clinic-Dr. Turner 3weeks. Diagnosis: Term -delivered, gestational hypertension Condition: Good - Patient Data Vitals - Most Recent: Last Vital Signs Temp 36.5 C 02/04/17 03:30 Pulse 66 02/04/17 03:30 Resp 16 02/04/17 03:30 BP 116/74 02/04/17 03:30 Pulse Ox 99 02/04/17 03:30 Weight - Most Recent: 116.12 kg I&O - Last 24 hours: Intake & Output 02/03/17 02/04/17 02/04/17 22:59 06:59 14:59 Intake Total 0 Balance 0 Med Orders - Current: Current Medications Acetaminophen (Tylenol) 650 mg PO Q4H PRN PRN Reason: mild pain or fever Benzocaine/Menthol (Dermoplast Pain Relief [place]) 0 gm TOP ASDIRECTED PRN PRN Reason: Perineal Comfort Measure Docusate Sodium (Colace) 100 mg PO BID PRN PRN Reason: Constipation Last Admin: 02/04/17 03:35 Dose: 100 mg Emollient Ointment (Lansinoh Hpa) 0 gm TOP ASDIRECTED PRN PRN Reason: Sore Nipples Ibuprofen (Motrin) 600 mg PO Q6H PRN PRN Reason: Mild pain or fever Last Admin: 02/03/17 19:59 Dose: 600 mg Witch Cherelle (Tucks) 1 pad TOP ASDIRECTED PRN PRN Reason: Hemorrhoid pain Last Admin: 02/02/17 14:21 Dose: 1 jar Discontinued Medications Bupivacaine HCl (Sensorcaine-Mpf 0.25%) 10 ml .ROUTE .STK-MED ONE Stop: 02/02/17 22:23 Diphenhydramine HCl (Benadryl) 25 mg IVPUSH Q6H PRN PRN Reason: Itching Ephedrine Sulfate (Ephedrine Sulfate) 5 mg IVPUSH ASDIRECTED PRN PRN Reason: Hypotension Ephedrine Sulfate (Ephedrine Sulfate) 5 mg IVPUSH ASDIRECTED PRN PRN Reason: HYPOTENTSION Fentanyl (Sublimaze) 100 mcg EPIDUR Q3H PRN PRN Reason: Pain Fentanyl (Sublimaze) 100 mcg EPIDUR Q3H PRN PRN Reason: PAIN Last Admin: 02/02/17 08:52 Dose: 100 mcg Fentanyl/Bupivacaine HCl (Fentanyl/Bupivacaine/Ns 2 Mcg-0.125% 100 Ml) 100 ml EPIDUR ASDIRECTED [facility] Last Admin: 02/02/17 08:53 Dose: 100 ml Fentanyl/Bupivacaine HCl (Fentanyl/Bupivacaine/Ns 2 Mcg-0.125% 100 Ml) 100 ml EPIDUR ASDIRECTED [facility] Lactated Ringer's (Ringers, Lactated) Confirm Administered Dose 1,000 mls @ as directed .ROUTE .[facility] ONE Stop: 02/01/17 17:22 Last Admin: 02/01/17 18:42 Dose: Not Given Oxytocin/Lactated Ringer's (Pitocin In Lr 10 Units/1,000 Ml) Confirm Administered Dose 10 unit in 1,000 mls @ as directed IV .[facility] ONE Stop: 02/01/17 17:23 Last Admin: 02/01/17 18:42 Dose: Not Given Lactated Ringer's (Ringers, Lactated) 1,000 mls @ 40 mls/hr IV ASDIRECTED AROLDO Last Admin: 02/02/17 06:48 Dose: 40 mls/hr Oxytocin/Lactated Ringer's (Pitocin In Lr 10 Units/1,000 Ml) 10 unit in 1,000 mls @ 12 mls/hr IV TITRATE AROLDO; 2 MUNITS/MIN PRN Reason: Protocol Last Admin: 02/02/17 08:10 Dose: 20 munits/min, 120 mls/hr Penicillin G Potassium 5 (millunits/ Sodium Chloride) 100 mls @ 55 mls/hr IV ONETIME AROLDO Last Admin: 02/01/17 18:38 Dose: 55 mls/hr Penicillin G Potassium 2.5 (millunits/ Sodium Chloride) 100 mls @ 55 mls/hr IV Q4H AROLDO Last Admin: 02/02/17 16:13 Dose: Not Given Oxytocin/Lactated Ringer's (Pitocin In Lr 10 Units/1,000 Ml) 10 unit in 1,000 mls @ 500 mls/hr IV .CONTINUOUS AROLDO Penicillin G Potassium 2.5 (millunits/ Sodium Chloride) 100 mls @ 100 mls/hr IV Q4H [facility] Last Admin: 02/02/17 10:56 Dose: 100 mls/hr Lidocaine HCl (Xylocaine 1%) Confirm Administered Dose 50 ml .ROUTE .[facility] ONE Stop: 02/02/17 10:20 Last Admin: 02/02/17 16:13 Dose: Not Given Nalbuphine HCl (Nubain) 10 mg IVPUSH Q2H PRN PRN Reason: Pain (moderate 4-6) Ondansetron HCl (Zofran) 4 mg IVPUSH Q4H PRN PRN Reason: Nausea/Vomiting Ondansetron HCl (Zofran) 4 mg IVPUSH ONETIME PRN PRN Reason: Nausea/Vomiting Sodium Chloride (Saline Flush) 10 ml FLUSH ASDIRECTED PRN PRN Reason: Keep Vein Open *Q Meaningful Use (DIS) - VTE *Q VTE Criteria *Q: - Stroke *Q Stroke Criteria *Q: - AMI *Q AMI Criteria *Q:
== END 2017-02-04 10:35 | disposition home or self-care (01) | DRG 560 ==
LOC: JD.OBCHECK 14:56 → JD.OB 14:57 → JD.OBCHECK 02-02 03:00 → JD.OB 02-02 03:01 → OBSVTOIN 02-02 13:01 → JD.OB 02-02 14:04
PROVIDERS: ADMIT Obstetrics & Gynecology; ATTEND Obstetrics & Gynecology
PROC: 10E0XZZ Delivery of Products of Conception, External Approach (ICD-10-PCS; principal; 2017-02-02)
PROC: 3E0P3VZ Introduction of Hormone into Female Reproductive, Percutaneous Approach (ICD-10-PCS; 2017-02-02)
PROC: 10907ZC Drainage of Amniotic Fluid, Therapeutic from Products of Conception, Via Natural or Artificial Opening (ICD-10-PCS; 2017-02-02)
PROC: 0KQM0ZZ Repair Perineum Muscle, Open Approach (ICD-10-PCS; 2017-02-02)
PROC: 00HU33Z Insertion of Infusion Device into Spinal Canal, Percutaneous Approach (ICD-10-PCS; 2017-02-02)
PROC: 3E0R3BZ Introduction of Anesthetic Agent into Spinal Canal, Percutaneous Approach (ICD-10-PCS; 2017-02-02)
DX: O13.4 Gestational [pregnancy-induced] hypertension without significant proteinuria, complicating childbirth (principal); O99.824 Streptococcus B carrier state complicating childbirth; O70.1 Second degree perineal laceration during delivery; Z3A.38 38 weeks gestation of pregnancy; Z37.0 Single live birth
CPT/HCPCS: 36415; 51702; 59300; 59409; 82565; 84450; 84460; 85027; 86850; 86900; 86901; A9270-GY; J2540; J2590; J3010; J7030; J7120

== ENCOUNTER 2018-08-10 07:03 | Inpatient (IN) | payer BC ==
[2018-08-10] MEDS ORDERED: Nalbuphine 20 MG/ML 1 ML Syringe IVPUSH PRN (07:14)
[2018-08-10] MEDS ORDERED: Ondansetron 4 MG/2 ML SDV IVPUSH PRN ×2 (07:14→11:05)
[2018-08-10] MEDS ORDERED: Sodium Chloride 0.9% 10 ML Syringe FLUSH PRN (07:14)
[2018-08-10] MEDS ORDERED: Oxytocin/Lactated Ringers 10 UNIT/1,000 ML BAG IV SCH ×2 (07:15)
[2018-08-10] MEDS ORDERED: Ampicillin 2 GM in Sodium Chloride 0.9% 100 ML IV ONE (07:30)
--- NOTE | 2018-08-10 07:36 | PCM.LDHP ---
L&D History of Present Illness - General Date of Service: 08/10/18 Admit Problem/Dx: Patient Status Order with Admit Dx/Problem 08/10/18 07:14 Patient Status [ADT] Routine Admission Diagnosis/Problem Admission Diagnosis/Problem Normal in third trimester Source of Information: Patient History Limitations: Reports: No Limitations - History of Present Illness Introduction:: Patient is a 27 y/o at 39 2/7 wks who presents for elective IOL. Doing well today. has had some intermittent contractions. Nothing patterned. 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 (Approximate): - Infectious Disease History Infectious Disease History: Reports: Other (See Below) ([place] Spotted Fever as a child) - Past Surgical History HEENT Surgical History: Reports: Oral Surgery (wisdom tooth extraction) Social & Family History - Tobacco Use Smoking Status *Q: Never Smoker - Caffeine Use Caffeine Use: Reports: Coffee - Alcohol Use Alcohol Use History: No - Recreational Drug Use Recreational Drug Use: No H&P Review of Systems - Review of Systems: Review Of Systems: See Below General: Reports: No Symptoms Pulmonary: Reports: No Symptoms Cardiovascular: Reports: No Symptoms Gastrointestinal: Reports: No Symptoms Genitourinary: Reports: No Symptoms Musculoskeletal: Reports: No Symptoms Psychiatric: Reports: No Symptoms Neurological: Reports: No Symptoms L&D Exam - Exam Exam: See Below - OB Specific Contraction Intensity: Irritability Movement: Active Heart Tones: Present Heart Tones per Min: 150 Heart Rate (FHR) Variability: Moderate (6-25 bmp) Presentation: Vertex - Hernandez Score Hernandez Score Cervix Position: Midposition Hernandez Score Consistency: Soft Hernandez Score Effacement: 51-70% Hernandez Score Dilation: 1-2 cm Hernandez Score Infant's Station: -3 Hernandez Score Total: 6 - Exam General: Alert, Oriented, Cooperative Lungs: Clear to Auscultation, Normal Respiratory Effort Cardiovascular: Regular Rate, Regular Rhythm GI/Abdominal Exam: Soft, Non-Tender Genitourinary: Normal external exam Extremities: Normal Inspection Skin: Warm, Dry, Intact - Problem List (1) 39 weeks gestation of SNOMED Code(s): 15673571 ICD Code: Z3A.39 - 39 WEEKS GESTATION OF Status: Acute Current Visit: Yes (2) GBS (group B Streptococcus carrier), +RV culture, currently SNOMED Code(s): 1276594055964, 941391242, 5966071692686 ICD Code: O99.820 - STREPTOCOCCUS B CARRIER STATE COMPLICATING Status: Acute Current Visit: No Problem List Initiated/Reviewed/Updated: Yes Orders Last 24hrs: Active Orders 24 hr Category Date Time Status Patient Status [ADT] Routine ADT 08/10/18 07:14 Ordered Activity as Tolerated [RC] PFP Care 08/10/18 07:14 Ordered Communication Order [RC] ASDIRECTED Care 08/10/18 07:14 Ordered Communication Order [RC] ASDIRECTED Care 08/10/18 07:14 Ordered Communication Order [RC] ASDIRECTED Care 08/10/18 07:14 Ordered Monitoring [RC] INTERMITTENT Care 08/10/18 07:14 Ordered Non Stress Test [RC] PER UNIT ROUTINE Care 08/10/18 07:14 Ordered Notify Provider [RC] ASDIRECTED Care 08/10/18 07:14 Ordered Notify Provider [RC] PRN Care 08/10/18 07:14 Ordered Peripheral IV Care [RC] . DIRECTED Care 08/10/18 07:15 Ordered Vaginal Exam [RC] ASDIRECTED Care 08/10/18 07:14 Ordered Vital Signs [RC] ASDIRECTED Care 08/10/18 07:14 Ordered Regular Diet [DIET] Diet 08/10/18 Breakfast Ordered CBC W/O DIFF,HEMOGRAM [HEME] Routine Lab 08/10/18 07:14 Ordered RAPID PLASMA REAGIN,RPR [CHEM] Routine Lab 08/10/18 07:14 Ordered TYPE AND SCREEN [BBK] Routine Lab 08/10/18 07:14 Ordered Ampicillin 1 gm Med 08/10/18 07:15 Ordered Sodium Chloride 0.9% [Normal Saline] 100 ml IV Q4H Ampicillin 2 gm Med 08/10/18 07:14 Ordered Sodium Chloride 0.9% [Normal Saline] 100 ml IV ONETIME Lactated Ringers [Ringers, Lactated] 1,000 ml Med 08/10/18 07:15 Ordered IV ASDIRECTED Nalbuphine [Nubain] Med 08/10/18 07:14 Ordered 10 mg IVPUSH Q2H PRN Ondansetron [Zofran] Med 08/10/18 07:14 Ordered 4 mg IVPUSH Q4H PRN Oxytocin/Lactated Ringers [Pitocin in LR 10 Units/1,000 Med 08/10/18 07:15 Ordered ML] 10 unit in 1,000 ml IV .CONTINUOUS Oxytocin/Lactated Ringers [Pitocin in LR 10 Units/1,000 Med 08/10/18 07:15 Ordered ML] 10 unit in 1,000 ml IV TITRATE Sodium Chloride 0.9% [Saline Flush] Med 08/10/18 07:14 Ordered 10 ml FLUSH ASDIRECTED PRN Electronic Heart Tones Internal [WOMSER] Per Unit Ot 08/10/18 07:14 Ordered Routine Peripheral IV Insertion Adult [OM.PC] Routine Oth 08/10/18 07:14 Ordered Resuscitation Status Routine Resus Stat 08/10/18 07:14 Ordered Medication Orders Ampicillin Sodium 2 gm/ Sodium (Chloride) 100 mls @ 200 mls/hr IV ONETIME ONE Stop: 08/10/18 07:59 Ampicillin Sodium 1 gm/ Sodium (Chloride) 100 mls @ 200 mls/hr IV Q4H AROLDO Lactated Ringer's (Ringers, Lactated) 1,000 mls @ 40 mls/hr IV ASDIRECTED AROLDO Oxytocin/Lactated Ringer's (Pitocin In Lr 10 Units/1,000 Ml) 10 unit in 1,000 mls @ 12 mls/hr IV TITRATE AROLDO; Protocol Oxytocin/Lactated Ringer's (Pitocin In Lr 10 Units/1,000 Ml) 10 unit in 1,000 mls @ 500 mls/hr IV .CONTINUOUS AROLDO Nalbuphine HCl (Nubain) 10 mg IVPUSH Q2H PRN PRN Reason: pain Ondansetron HCl (Zofran) 4 mg IVPUSH Q4H PRN PRN Reason: Nausea/Vomiting Sodium Chloride (Saline Flush) 10 ml FLUSH ASDIRECTED PRN PRN Reason: Keep Vein Open Assessment/Plan Comment:: 27 y/o at 39 2/7 wks presents for elective IOL * Labs * GBS positive, will plan Ampicillin for prophylaxis * Pitocin and then AROM for IOL * Pain management per patient preference, likely epidural * Anticipate
[2018-08-10] MEDS: Lactated Ringers 1,000 ML IV SCH ×3 (08:27→14:01)
--- NOTE | 2018-08-10 10:25 | PCM.PNLD ---
Labor Progress Note - VS & Meds Vital Signs: Last Vital Signs Temp 36.5 C 08/10/18 07:14 Pulse 85 08/10/18 07:14 Resp 16 08/10/18 07:14 BP 137/81 08/10/18 07:14 Pulse Ox 100 08/10/18 07:14 Active Medications: Current Medications Ampicillin Sodium 1 gm/ Sodium (Chloride) 100 mls @ 200 mls/hr IV Q4H AROLDO Lactated Ringer's (Ringers, Lactated) 1,000 mls @ 40 mls/hr IV ASDIRECTED AROLDO Last Admin: 08/10/18 08:27 Dose: 40 mls/hr Oxytocin/Lactated Ringer's (Pitocin In Lr 10 Units/1,000 Ml) 10 unit in 1,000 mls @ 12 mls/hr IV TITRATE AROLDO; Protocol Last Titration: 08/10/18 10:01 Dose: 8 munits/min, 48 mls/hr Oxytocin/Lactated Ringer's (Pitocin In Lr 10 Units/1,000 Ml) 10 unit in 1,000 mls @ 500 mls/hr IV .CONTINUOUS AROLDO Nalbuphine HCl (Nubain) 10 mg IVPUSH Q2H PRN PRN Reason: pain Ondansetron HCl (Zofran) 4 mg IVPUSH Q4H PRN PRN Reason: Nausea/Vomiting Sodium Chloride (Saline Flush) 10 ml FLUSH ASDIRECTED PRN PRN Reason: Keep Vein Open Discontinued Medications Ampicillin Sodium 2 gm/ Sodium (Chloride) 100 mls @ 200 mls/hr IV ONETIME ONE Stop: 08/10/18 07:59 Last Admin: 08/10/18 08:27 Dose: 200 mls/hr - Uterine Contractions Uterine Monitoring Mode: External Dooms Contraction Intensity: Mild to Moderate Uterine Resting Tone: Soft - Monitoring Monitor Mode: External Ultrasound Heart Rate (FHR) Baseline: 140 Heart Rate (FHR) Variability: Moderate (6-25 bmp) Accelerations: Present, 15x15 Decelerations: None Strip Review: Category I - Vaginal Exam Dilation (cm): 2 Effacement (Percent): 60 Station: -2 Cervical Position: Midposition - Labor Progress (Free Text) Labor Progress: Doing well. on 8 of pitocin. Feeling some mild-moderate contractions. AROM performed. Continue present management
[2018-08-10] MEDS ORDERED: ePHEDrine 50 MG/ML SDV IVPUSH PRN (11:05)
[2018-08-10] MEDS ORDERED: fentaNYL 100 MCG/2 ML SDV EPIDUR PRN (11:05)
--- NOTE | 2018-08-10 11:12 | PCM.PREANE ---
Preanesthetic Assessment - Anesthesia/Transfusion/Family Hx Anesthesia History: Prior Anesthesia Without Reaction (Epidural with last ) Family History of Anesthesia Reaction: No Transfusion History: No Prior Transfusion(s) Intubation History: Unknown - Review of Systems General: No Symptoms Pulmonary: No Symptoms, Shortness of Breath (with raven hick's contractions, and palpitations) Cardiovascular: No Symptoms (history of gestational HTN, not present with current ) Gastrointestinal: No Symptoms Neurological: No Symptoms (Tender Sacroiliac joint with on right side) - Physical Assessment NPO Status Date: 08/10/18 NPO Status Time: 10:00 Pulse: 85 O2 Sat by Pulse Oximetry: 100 Respiratory Rate: 16 Blood Pressure: 137/81 Temperature: 36.5 C Vital Signs: Last Vital Signs Temp 36.5 C 08/10/18 07:14 Pulse 85 08/10/18 07:14 Resp 16 08/10/18 07:14 BP 137/81 08/10/18 07:14 Pulse Ox 100 08/10/18 07:14 Height: 1.78 m Weight: 117.299 kg ASA Class: 2 Mental Status: Alert & Oriented x3 Airway Class: Mallampati = 2 Dentition: Reports: Normal Dentition, Caries Thyro-Mental Finger Breadths: 3 Mouth Opening Finger Breadths: 3 ROM/Head Extension: Full Lungs: Clear to Auscultation, Normal Respiratory Effort Cardiovascular: Regular Rate, Regular Rhythm, No Murmurs - Lab Values: Laboratory Last Values WBC 6.90 K/mm3 (3.98-10.04) 08/10/18 07:37 RBC 3.93 M/mm3 (3.98-5.22) L 08/10/18 07:37 Hgb 11.6 gm/L (11.2-15.7) 08/10/18 07:37 Hct 35.2 % (34.1-44.9) 08/10/18 07:37 MCV 89.6 fl (79.4-94.8) 08/10/18 07:37 MCH 29.5 pg (25.6-32.2) 08/10/18 07:37 MCHC 33.0 g/dl (32.2-35.5) 08/10/18 07:37 RDW Std Deviation 41.2 fL (36.4-46.3) 08/10/18 07:37 Plt Count 225 K/mm3 (182-369) 08/10/18 07:37 MPV 10.1 fl (9.4-12.3) 08/10/18 07:37 Blood Type A POSITIVE 08/10/18 07:37 Gel Antibody Screen Negative 08/10/18 07:37 All labs reviewed and noted and within acceptable ranges to proceed with epidural if desired. 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 [No Known Home Meds] 08/10/18 [History] - CURRENT (IN HOUSE) MEDS Current Meds: Current Medications Ampicillin Sodium 1 gm/ Sodium (Chloride) 100 mls @ 200 mls/hr IV Q4H AROLDO Lactated Ringer's (Ringers, Lactated) 1,000 mls @ 40 mls/hr IV ASDIRECTED AROLDO Last Admin: 08/10/18 08:27 Dose: 40 mls/hr Oxytocin/Lactated Ringer's (Pitocin In Lr 10 Units/1,000 Ml) 10 unit in 1,000 mls @ 12 mls/hr IV TITRATE AROLDO; Protocol Last Titration: 08/10/18 10:37 Dose: 10 munits/min, 60 mls/hr Oxytocin/Lactated Ringer's (Pitocin In Lr 10 Units/1,000 Ml) 10 unit in 1,000 mls @ 500 mls/hr IV .CONTINUOUS AROLDO Nalbuphine HCl (Nubain) 10 mg IVPUSH Q2H PRN PRN Reason: pain Ondansetron HCl (Zofran) 4 mg IVPUSH Q4H PRN PRN Reason: Nausea/Vomiting Sodium Chloride (Saline Flush) 10 ml FLUSH ASDIRECTED PRN PRN Reason: Keep Vein Open Discontinued Medications Ampicillin Sodium 2 gm/ Sodium (Chloride) 100 mls @ 200 mls/hr IV ONETIME ONE Stop: 08/10/18 07:59 Last Admin: 08/10/18 08:27 Dose: 200 mls/hr
[2018-08-10] MEDS ORDERED: Bupivacaine/fentaNYL/NS 100 ML Bag EPIDUR SCH (11:15)
[2018-08-10] MEDS ORDERED: Phenylephrine 1 MG in Sodium Chloride 0.9% 10 ML IV SCH (11:15)
[2018-08-10] MEDS: Ampicillin 1 GM in Sodium Chloride 0.9% 100 ML IV SCH ×2 (11:59→16:06)
--- NOTE | 2018-08-10 17:00 | PCM.DEL ---
L & D Note - General Info Date of Service: 08/10/18 - Delivery Note Labor: Induced by ARM, Induced by Oxytocin Delivery Outcome: Livebirth Infant Delivery Method: Spontaneous Vaginal Delivery-Single Infant Delivery Mode: Spontaneous Presentation: Right Occiput Anterior (PIERRE) Nuchal Cord: None Anesthesia Type: Epidural Amniotic Fluid Description: Clear Episiotomy Type: None Laceration: 2nd Degree, Vaginal Suture type: Vicryl Suture size: 2-0 Placenta: Intact, Spontaneous Cord: 2 Vessels Estimated Blood Loss: 200 Resuscitation Needed: Yes Tunas: Bulb Syringe, Stimulated, Warmed, [place] Used Post Delivery Events: Shoulder Dystocia Delivery Comments (Free Text/Narrative):: Patient found to be complete and began pushing. With maternal pushing effort head delivered from an PIERRE presentation and then did retract against the perineum. No nuchal cord. With gentle downward traction the shoulders did not delivery. Patient placed in deep McRobert's and another attempt made, but unsuccessful. Patient then kept in McRobert's and suprapubic pressure applied. Anterior shoulder did deliver and remainder of infant followed quickly thereafter. Total time was < 30 seconds. placed on maternal abdomen. Cord clamped and cut. Cord blood obtained. Placenta allowed time to separate and expelled intact. Inspection of perineum showed a small vaginal laceration which was bleeding. A single interrupted suture of 0 vicryl was placed in figure of eight fashion. - General Info Date of Service: 08/10/18 - Patient Data Vitals - Most Recent: Last Vital Signs Temp 36.5 C 08/10/18 11:17 Pulse 85 08/10/18 11:17 Resp 16 08/10/18 11:17 BP 137/81 08/10/18 11:17 Pulse Ox 100 08/10/18 11:17 Weight - Most Recent: 117.299 kg Lab Results Last 24 Hours: Laboratory Results - last 24 hr 08/10/18 08/10/18 08/10/18 Range/Units 07:37 07:37 07:37 WBC 6.90 (3.98-10.04) K/mm3 RBC 3.93 L (3.98-5.22) M/mm3 Hgb 11.6 (11.2-15.7) gm/L Hct 35.2 (34.1-44.9) % MCV 89.6 (79.4-94.8) fl MCH 29.5 (25.6-32.2) pg MCHC 33.0 (32.2-35.5) g/dl RDW Std Deviation 41.2 (36.4-46.3) fL Plt Count 225 (182-369) K/mm3 MPV 10.1 (9.4-12.3) fl RPR Non-reactive (NONREACTIVE) Blood Type A POSITIVE Gel Antibody Screen Negative Med Orders - Current: Current Medications Ephedrine Sulfate (Ephedrine Sulfate) 5 mg IVPUSH ASDIRECTED PRN PRN Reason: Hypotension Fentanyl (Sublimaze) 100 mcg EPIDUR Q3H PRN PRN Reason: Pain Last Admin: 08/10/18 13:16 Dose: 100 mcg Fentanyl/Bupivacaine HCl (Fentanyl/Bupivacaine/Ns 2 Mcg-0.125% 100 Ml) 100 ml EPIDUR ASDIRECTED AROLDO Last Admin: 08/10/18 13:17 Dose: 100 ml Ampicillin Sodium 1 gm/ Sodium (Chloride) 100 mls @ 200 mls/hr IV Q4H AROLDO Last Admin: 08/10/18 16:06 Dose: 200 mls/hr Lactated Ringer's (Ringers, Lactated) 1,000 mls @ 40 mls/hr IV ASDIRECTED AROLDO Last Admin: 08/10/18 14:01 Dose: 100 mls/hr Oxytocin/Lactated Ringer's (Pitocin In Lr 10 Units/1,000 Ml) 10 unit in 1,000 mls @ 12 mls/hr IV TITRATE AROLDO; Protocol Last Titration: 08/10/18 16:40 Dose: 999 mls/hr Oxytocin/Lactated Ringer's (Pitocin In Lr 10 Units/1,000 Ml) 10 unit in 1,000 mls @ 500 mls/hr IV .CONTINUOUS AROLDO Phenylephrine HCl 1 mg/ Sodium (Chloride) 10.1 mls @ 1 mls/sec IV TITRATE AROLDO; Protocol Nalbuphine HCl (Nubain) 10 mg IVPUSH Q2H PRN PRN Reason: pain Ondansetron HCl (Zofran) 4 mg IVPUSH Q4H PRN PRN Reason: Nausea/Vomiting Ondansetron HCl (Zofran) 4 mg IVPUSH ONETIME PRN PRN Reason: Nausea/Vomiting Sodium Chloride (Saline Flush) 10 ml FLUSH ASDIRECTED PRN PRN Reason: Keep Vein Open Discontinued Medications Ampicillin Sodium 2 gm/ Sodium (Chloride) 100 mls @ 200 mls/hr IV ONETIME ONE Stop: 08/10/18 07:59 Last Admin: 08/10/18 08:27 Dose: 200 mls/hr - Problem List & Annotations (1) 39 weeks gestation of SNOMED Code(s): 28276107 Code(s): Z3A.39 - 39 WEEKS GESTATION OF Status: Acute Current Visit: Yes (2) GBS (group B Streptococcus carrier), +RV culture, currently SNOMED Code(s): 5972645487245, 878353739, 6617577525259 Code(s): O99.820 - STREPTOCOCCUS B CARRIER STATE COMPLICATING Status: Acute Current Visit: No (3) Shoulder dystocia during labor and delivery SNOMED Code(s): 74313157 Code(s): O66.0 - OBSTRUCTED LABOR DUE TO SHOULDER DYSTOCIA Status: Acute Current Visit: Yes (4) Vaginal delivery SNOMED Code(s): 805080915 Code(s): O80 - ENCOUNTER FOR FULL-TERM UNCOMPLICATED DELIVERY Status: Acute Current Visit: No - Problem List Review Problem List Initiated/Reviewed/Updated: Yes - My Orders Last 24 Hours: My Active Orders 08/10/18 07:14 Patient Status [ADT] Routine Activity as Tolerated [RC] PFP Communication Order [RC] ASDIRECTED Communication Order [RC] ASDIRECTED Communication Order [RC] ASDIRECTED Notify Provider [RC] ASDIRECTED Notify Provider [RC] PRN Vital Signs [RC] ASDIRECTED Nalbuphine [Nubain] 10 mg IVPUSH Q2H PRN Ondansetron [Zofran] 4 mg IVPUSH Q4H PRN Sodium Chloride 0.9% [Saline Flush] 10 ml FLUSH ASDIRECTED PRN Electronic Heart Tones Internal [WOMSER] Per Unit Routine Peripheral IV Insertion Adult [OM.PC] Routine Resuscitation Status Routine 08/10/18 07:15 Peripheral IV Care [RC] Q2HR Lactated Ringers [Ringers, Lactated] 1,000 ml IV ASDIRECTED Oxytocin/Lactated Ringers [Pitocin in LR 10 Units/1,000 ML] 10 unit in 1,000 ml IV .CONTINUOUS Oxytocin/Lactated Ringers [Pitocin in LR 10 Units/1,000 ML] 10 unit in 1,000 ml IV TITRATE 08/10/18 11:30 Ampicillin 1 gm Sodium Chloride 0.9% [Normal Saline] 100 ml IV Q4H 08/10/18 Breakfast Regular Diet [DIET] - Assessment Assessment:: 27 y/o G2 now P2002 PPD#0 from at 39 2/7 wks - Plan Plan:: * Routine cares * Encourage breast feeding * Discharge home in 1-2 days
[2018-08-10] MEDS ORDERED: Lanolin 100% Cream 7 GM Tube TOP PRN (17:19)
[2018-08-10] MEDS ORDERED: Witch Hazel Medicated Pads 40/Jar TOP PRN (17:19)
[2018-08-10] MEDS ORDERED: Docusate Sodium 100 MG Cap PO PRN (17:19)
[2018-08-10] MEDS ORDERED: Benzocaine/Menthol 20%-0.5% Spray 56 GM Canister TOP PRN (17:19)
[2018-08-10] MEDS: Ibuprofen 600 MG Tab PO PRN (18:14)
[2018-08-10] MEDS ORDERED: Bupivacaine 0.25% 10 ML SDV ONE (22:00)
[2018-08-11] MEDS: Ibuprofen 600 MG Tab PO PRN ×3 (00:19→14:16)
--- NOTE | 2018-08-11 07:19 | PCM.PNPP ---
- General Info Date of Service: 08/11/18 Functional Status: Reports: Pain Controlled, Tolerating Diet, Ambulating, Urinating - Review of Systems General: Reports: No Symptoms Pulmonary: Reports: No Symptoms Cardiovascular: Reports: No Symptoms Gastrointestinal: Reports: No Symptoms Genitourinary: Reports: No Symptoms Musculoskeletal: Reports: No Symptoms Neurological: Reports: No Symptoms - Patient Data Vital Signs - Most Recent: Last Vital Signs Temp 36.8 C 08/11/18 03:50 Pulse 72 08/11/18 03:50 Resp 18 08/11/18 03:50 BP 126/97 H 08/11/18 03:50 Pulse Ox 98 08/11/18 03:50 Weight - Most Recent: 117.299 kg I&O - Last 24 Hours: Intake & Output 08/10/18 08/11/18 08/11/18 22:59 06:59 14:59 Intake Total 4800 Output Total 1100 Balance 3700 Lab Results - Last 24 Hours: Laboratory Results - last 24 hr 08/10/18 08/10/18 08/10/18 Range/Units 07:37 07:37 07:37 WBC 6.90 (3.98-10.04) K/mm3 RBC 3.93 L (3.98-5.22) M/mm3 Hgb 11.6 (11.2-15.7) gm/L Hct 35.2 (34.1-44.9) % MCV 89.6 (79.4-94.8) fl MCH 29.5 (25.6-32.2) pg MCHC 33.0 (32.2-35.5) g/dl RDW Std Deviation 41.2 (36.4-46.3) fL Plt Count 225 (182-369) K/mm3 MPV 10.1 (9.4-12.3) fl RPR Non-reactive (NONREACTIVE) Blood Type A POSITIVE Gel Antibody Screen Negative Med Orders - Current: Current Medications Benzocaine/Menthol (Dermoplast Pain Relief [place]) 0 gm TOP ASDIRECTED PRN PRN Reason: Perineal Comfort Measure Last Admin: 08/10/18 18:13 Dose: 1 can Docusate Sodium (Colace) 100 mg PO BID PRN PRN Reason: Constipation Last Admin: 08/10/18 21:45 Dose: 100 mg Emollient Ointment (Lansinoh Hpa) 0 gm TOP ASDIRECTED PRN PRN Reason: Sore Nipples Last Admin: 08/10/18 18:12 Dose: 1 tube Ibuprofen (Motrin) 600 mg PO Q6H PRN PRN Reason: Mild pain or fever Last Admin: 08/11/18 00:19 Dose: 600 mg Witch Cherelle (Tucks) 1 pad TOP ASDIRECTED PRN PRN Reason: Perineal Comfort Measure Last Admin: 08/10/18 18:13 Dose: 1 container Discontinued Medications Ephedrine Sulfate (Ephedrine Sulfate) 5 mg IVPUSH ASDIRECTED PRN PRN Reason: Hypotension Fentanyl (Sublimaze) 100 mcg EPIDUR Q3H PRN PRN Reason: Pain Last Admin: 08/10/18 13:16 Dose: 100 mcg Fentanyl/Bupivacaine HCl (Fentanyl/Bupivacaine/Ns 2 Mcg-0.125% 100 Ml) 100 ml EPIDUR ASDIRECTED AROLDO Last Admin: 08/10/18 13:17 Dose: 100 ml Ampicillin Sodium 2 gm/ Sodium (Chloride) 100 mls @ 200 mls/hr IV ONETIME ONE Stop: 08/10/18 07:59 Last Admin: 08/10/18 08:27 Dose: 200 mls/hr Ampicillin Sodium 1 gm/ Sodium (Chloride) 100 mls @ 200 mls/hr IV Q4H AROLDO Last Admin: 08/10/18 16:06 Dose: 200 mls/hr Lactated Ringer's (Ringers, Lactated) 1,000 mls @ 40 mls/hr IV ASDIRECTED AROLDO Last Admin: 08/10/18 14:01 Dose: 100 mls/hr Oxytocin/Lactated Ringer's (Pitocin In Lr 10 Units/1,000 Ml) 10 unit in 1,000 mls @ 12 mls/hr IV TITRATE AROLDO; Protocol Last Titration: 08/10/18 16:40 Dose: 999 mls/hr Oxytocin/Lactated Ringer's (Pitocin In Lr 10 Units/1,000 Ml) 10 unit in 1,000 mls @ 500 mls/hr IV .CONTINUOUS AROLDO Last Admin: 08/10/18 17:25 Dose: 999 mls/hr Phenylephrine HCl 1 mg/ Sodium (Chloride) 10.1 mls @ 1 mls/sec IV TITRATE AROLDO; Protocol Nalbuphine HCl (Nubain) 10 mg IVPUSH Q2H PRN PRN Reason: pain Ondansetron HCl (Zofran) 4 mg IVPUSH Q4H PRN PRN Reason: Nausea/Vomiting Ondansetron HCl (Zofran) 4 mg IVPUSH ONETIME PRN PRN Reason: Nausea/Vomiting Sodium Chloride (Saline Flush) 10 ml FLUSH ASDIRECTED PRN PRN Reason: Keep Vein Open - Infant Interaction Infant Disposition, : Bandy in Room with Family Infant Interaction: Holding Infant Feeding: Attempted ; Nursed Fair/Poor Support Person: - Recovery Exam Fundal Tone: Firm Fundal Level: 1 Fingerbreadths Below Umbilicus Fundal Placement: Midline Lochia Amount: Small Lochia Color: Rubra/Red Perineum Description: Edematous Bladder Status: Voiding Urinary Elimination: Voided - Exam General: Alert, Oriented, Cooperative GI/Abdominal Exam: Soft, Non-Tender Extremities: Normal Inspection Skin: Warm, Dry, Intact - Problem List & Annotations (1) 39 weeks gestation of SNOMED Code(s): 51994150 Code(s): Z3A.39 - 39 WEEKS GESTATION OF Status: Acute Current Visit: Yes (2) GBS (group B Streptococcus carrier), +RV culture, currently SNOMED Code(s): 1158437553859, 650045186, 0004481371706 Code(s): O99.820 - STREPTOCOCCUS B CARRIER STATE COMPLICATING Status: Acute Current Visit: No (3) Shoulder dystocia during labor and delivery SNOMED Code(s): 85437550 Code(s): O66.0 - OBSTRUCTED LABOR DUE TO SHOULDER DYSTOCIA Status: Acute Current Visit: Yes (4) Vaginal delivery SNOMED Code(s): 929121314 Code(s): O80 - ENCOUNTER FOR FULL-TERM UNCOMPLICATED DELIVERY Status: Acute Current Visit: No - Problem List Review Problem List Initiated/Reviewed/Updated: Yes - My Orders Last 24 Hours: My Active Orders 08/10/18 07:14 Resuscitation Status Routine 08/10/18 17:19 Activity as Tolerated [RC] PER UNIT ROUTINE Vital Signs [RC] 03,09,15,21 Benzocaine/Menthol [Dermoplast Pain Relief [place]] See Dose Instructions TOP ASDIRECTED PRN Docusate Sodium [Colace] 100 mg PO BID PRN Ibuprofen [Motrin] 600 mg PO Q6H PRN Lanolin [Lansinoh HPA] See Dose Instructions TOP ASDIRECTED PRN Witch Cherelle [Tucks] 1 pad TOP ASDIRECTED PRN Assess Lochia [WOMSER] Per Unit Routine Assess Uterine Involution [WOMSER] Per Unit Routine Breast Pump [WOMSER] Per Unit Routine Heat Therapy [OM.PC] PRN Ice Therapy [OM.PC] Per Unit Routine Perineal Care [OM.PC] Per Unit Routine Peripheral IV Discontinue [OM.PC] Routine Sitz Bath [OM.PC] Per Unit Routine 08/10/18 Dinner Regular Diet [DIET] 08/11/18 07:19 Ready for Discharge [RC] PER UNIT ROUTINE 08/11/18 17:19 Heat Therapy [OM.PC] PRN - Assessment Assessment:: 27 y/o G2 now P2002 PPD#1 from at 39 2/7 wks - Plan Plan:: * Routine cares * Encourage breast feeding * Discharge home today assuming Pediatric team able to discharge baby
--- NOTE | 2018-08-12 07:56 | PCM.DCSUM1 ---
Discharge Summary - Hospital Course Brief History: Planned discharge yesterday but stayed for reasons. Diagnosis: Stroke: No - Discharge Data Discharge Date: 08/12/18 Discharge Disposition: Home, Self-Care 01 Condition: Good - Patient Instructions Diet: Regular Diet as Tolerated Activity: As Tolerated Activity, Other: Pelvic Rest for 6 weeks Driving: May Drive Today Showering/Bathing: May Shower Showering/Bathing, Other: May bathe Notify Provider of: Fever, Increased Pain, Swelling and Redness, Drainage, Nausea and/or Vomiting - Discharge Plan *PRESCRIPTION DRUG MONITORING PROGRAM REVIEWED*: Not Applicable *COPY OF PRESCRIPTION DRUG MONITORING REPORT IN PATIENT AMY: Not Applicable Home Medications: Home Meds Docusate Sodium [Colace] 100 mg PO BID PRN cap 08/10/18 [Rx] Ibuprofen [Motrin] 600 mg PO Q6H PRN tablet 08/10/18 [Rx] Patient Handouts: Home Care Instructions for Mom Referrals: Radha Turner MD [Primary Care Provider] - (3 weeks for check ) - Discharge Summary/Plan Comment DC Time >30 min.: No - General Info Date of Service: 08/12/18 Functional Status: Reports: Pain Controlled - Review of Systems General: Reports: No Symptoms HEENT: Reports: No Symptoms Pulmonary: Reports: No Symptoms Cardiovascular: Reports: No Symptoms Gastrointestinal: Reports: No Symptoms Genitourinary: Reports: No Symptoms Musculoskeletal: Reports: No Symptoms Skin: Reports: No Symptoms Neurological: Reports: No Symptoms Psychiatric: Reports: No Symptoms - Patient Data Vitals - Most Recent: Last Vital Signs Temp 36.6 C 08/12/18 03:47 Pulse 66 08/12/18 03:47 Resp 16 08/12/18 03:47 BP 110/70 08/12/18 03:47 Pulse Ox 97 08/12/18 03:47 Weight - Most Recent: 117.299 kg Med Orders - Current: Current Medications Benzocaine/Menthol (Dermoplast Pain Relief [place]) 0 gm TOP ASDIRECTED PRN PRN Reason: Perineal Comfort Measure Last Admin: 08/10/18 18:13 Dose: 1 can Docusate Sodium (Colace) 100 mg PO BID PRN PRN Reason: Constipation Last Admin: 08/10/18 21:45 Dose: 100 mg Emollient Ointment (Lansinoh Hpa) 0 gm TOP ASDIRECTED PRN PRN Reason: Sore Nipples Last Admin: 08/10/18 18:12 Dose: 1 tube Ibuprofen (Motrin) 600 mg PO Q6H PRN PRN Reason: Mild pain or fever Last Admin: 08/11/18 14:16 Dose: 600 mg Witch Cherelle (Tucks) 1 pad TOP ASDIRECTED PRN PRN Reason: Perineal Comfort Measure Last Admin: 08/10/18 18:13 Dose: 1 container Discontinued Medications Bupivacaine HCl (Sensorcaine-Mpf 0.25%) 10 ml .ROUTE .STK-MED ONE Stop: 08/10/18 22:01 Ephedrine Sulfate (Ephedrine Sulfate) 5 mg IVPUSH ASDIRECTED PRN PRN Reason: Hypotension Fentanyl (Sublimaze) 100 mcg EPIDUR Q3H PRN PRN Reason: Pain Last Admin: 08/10/18 13:16 Dose: 100 mcg Fentanyl/Bupivacaine HCl (Fentanyl/Bupivacaine/Ns 2 Mcg-0.125% 100 Ml) 100 ml EPIDUR ASDIRECTED AROLDO Last Admin: 08/10/18 13:17 Dose: 100 ml Ampicillin Sodium 2 gm/ Sodium (Chloride) 100 mls @ 200 mls/hr IV ONETIME ONE Stop: 08/10/18 07:59 Last Admin: 08/10/18 08:27 Dose: 200 mls/hr Ampicillin Sodium 1 gm/ Sodium (Chloride) 100 mls @ 200 mls/hr IV Q4H AROLDO Last Admin: 08/10/18 16:06 Dose: 200 mls/hr Lactated Ringer's (Ringers, Lactated) 1,000 mls @ 40 mls/hr IV ASDIRECTED AROLDO Last Admin: 08/10/18 14:01 Dose: 100 mls/hr Oxytocin/Lactated Ringer's (Pitocin In Lr 10 Units/1,000 Ml) 10 unit in 1,000 mls @ 12 mls/hr IV TITRATE AROLDO; Protocol Last Titration: 08/10/18 16:40 Dose: 999 mls/hr Oxytocin/Lactated Ringer's (Pitocin In Lr 10 Units/1,000 Ml) 10 unit in 1,000 mls @ 500 mls/hr IV .CONTINUOUS AROLDO Last Admin: 08/10/18 17:25 Dose: 999 mls/hr Phenylephrine HCl 1 mg/ Sodium (Chloride) 10.1 mls @ 1 mls/sec IV TITRATE AROLDO; Protocol Nalbuphine HCl (Nubain) 10 mg IVPUSH Q2H PRN PRN Reason: pain Ondansetron HCl (Zofran) 4 mg IVPUSH Q4H PRN PRN Reason: Nausea/Vomiting Ondansetron HCl (Zofran) 4 mg IVPUSH ONETIME PRN PRN Reason: Nausea/Vomiting Sodium Chloride (Saline Flush) 10 ml FLUSH ASDIRECTED PRN PRN Reason: Keep Vein Open - Exam General: Reports: Alert, Oriented HEENT: Reports: Pupils Equal, Pupils Reactive, EOMI, Mucous Membr. Moist/[place] Neck: Reports: Supple Lungs: Reports: Clear to Auscultation, Normal Respiratory Effort Cardiovascular: Reports: Regular Rate, Regular Rhythm GI/Abdominal Exam: Normal Bowel Sounds, Soft, Non-Tender, No Organomegaly, No Distention, No Abnormal Bruit, No Mass, Pelvis Stable Rectal (Female) Exam: Normal Exam Back Exam: Reports: Normal Inspection, Full Range of Motion Extremities: Normal Inspection, Normal Range of Motion, Non-Tender, No Pedal Edema, Normal Capillary Refill Skin: Reports: Warm, Dry, Intact Wound/Incisions: Reports: Healing Well Neurological: Reports: No New Focal Deficit Psy/Mental Status: Reports: Alert, Normal Affect, Normal Mood
[2018-08-12 09:20] VITALS: BP 126/77
== END 2018-08-12 10:40 | disposition home or self-care (01) | DRG 560 ==
LOC: JD.OBCHECK 07:03 → JD.OB 07:04 → OBSVTOIN 16:39 → JD.OB 16:39
PROVIDERS: ADMIT Obstetrics & Gynecology; ATTEND Obstetrics & Gynecology
PROC: 10E0XZZ Delivery of Products of Conception, External Approach (ICD-10-PCS; principal; 2018-08-10)
PROC: 10907ZC Drainage of Amniotic Fluid, Therapeutic from Products of Conception, Via Natural or Artificial Opening (ICD-10-PCS; 2018-08-10)
PROC: 3E033VJ Introduction of Other Hormone into Peripheral Vein, Percutaneous Approach (ICD-10-PCS; 2018-08-10)
PROC: 0KQM0ZZ Repair Perineum Muscle, Open Approach (ICD-10-PCS; 2018-08-10)
PROC: 4A1HXCZ Monitoring of Products of Conception, Cardiac Rate, External Approach (ICD-10-PCS; 2018-08-10)
DX: O99.824 Streptococcus B carrier state complicating childbirth (principal); O66.0 Obstructed labor due to shoulder dystocia; O70.1 Second degree perineal laceration during delivery; Z3A.39 39 weeks gestation of pregnancy; Z37.0 Single live birth
CPT/HCPCS: 36415; 51702; 59025; 59409; 85027; 86592; 86850; 86900; 86901; A9270-GY; J0290; J2590; J3010; J3490; J7030; J7120

== ENCOUNTER 2019-08-21 06:54 | Inpatient (IN) | payer BC ==
[2019-08-21] MEDS ORDERED: Nalbuphine 10 MG/ML Syringe IVPUSH PRN (07:09)
[2019-08-21] MEDS ORDERED: Sodium Chloride 0.9% 10 ML Syringe FLUSH PRN (07:09)
[2019-08-21] MEDS ORDERED: Ondansetron 4 MG/2 ML SDV IVPUSH PRN (07:09)
--- NOTE | 2019-08-21 07:12 | PCM.LDHP ---
L&D History of Present Illness - General Date of Service: 08/21/19 Admit Problem/Dx: Patient Status Order with Admit Dx/Problem 08/21/19 07:10 Patient Status [ADT] Routine Admission Diagnosis/Problem Admission Diagnosis/Problem Normal in third trimester Source of Information: Patient History Limitations: Reports: No Limitations - History of Present Illness Introduction:: Patient is a 28 y/o at 39 0/7 wks who presents for elective IOL Doing well. Some intermittent cramping, but no casey contractions. 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): - Infectious Disease History Infectious Disease History: Reports: Other (See Below) ([place] spotted fever) - Past Surgical History HEENT Surgical History: Reports: Oral Surgery Social & Family History - Family History Family Medical History: Noncontributory - Tobacco Use Smoking Status *Q: Never Smoker - Caffeine Use Caffeine Use: Reports: Coffee - Alcohol Use Alcohol Use History: No - Recreational Drug Use Recreational Drug Use: No H&P Review of Systems - Review of Systems: Review Of Systems: See Below General: Reports: No Symptoms Pulmonary: Reports: No Symptoms Cardiovascular: Reports: No Symptoms Gastrointestinal: Reports: No Symptoms Genitourinary: Reports: No Symptoms Musculoskeletal: Reports: No Symptoms Psychiatric: Reports: No Symptoms Neurological: Reports: No Symptoms L&D Exam - Exam Exam: See Below - OB Specific Contraction Intensity: Irritability Movement: Active Heart Tones: Present Heart Tones per Min: 140 Heart Rate (FHR) Variability: Moderate (6-25 bmp) Presentation: Vertex - Hernandez Score Hernandez Score Cervix Position: Posterior Hernandez Score Consistency: Soft Hernandez Score Effacement: 31-50% Hernandez Score Dilation: 1-2 cm Hernandez Score 's Station: -3 Hernandez Score Total: 4 - Exam General: Alert, Oriented, Cooperative Lungs: Clear to Auscultation, Normal Respiratory Effort Cardiovascular: Regular Rate, Regular Rhythm GI/Abdominal Exam: Soft, Non-Tender Genitourinary: Normal external exam Extremities: Normal Inspection Skin: Warm, Dry, Intact - Patient Data Result Diagrams: 08/21/19 07:54 - Problem List (1) Single umbilical artery SNOMED Code(s): 015696601 ICD Code: Q27.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 Status: Acute Current Visit: Yes (2) 39 weeks gestation of SNOMED Code(s): 87942067 ICD Code: Z3A.39 - 39 WEEKS GESTATION OF Status: Acute Current Visit: No Problem List Initiated/Reviewed/Updated: Yes Orders Last 24hrs: Active Orders 24 hr Category Date Time Status Patient Status [ADT] Routine ADT 08/21/19 07:10 Ordered Communication Order [RC] ASDIRECTED Care 08/21/19 07:10 Ordered Communication Order [RC] ASDIRECTED Care 08/21/19 07:10 Ordered Communication Order [RC] ASDIRECTED Care 08/21/19 07:10 Ordered Heart Tones [RC] ASDIRECTED Care 08/21/19 07:10 Ordered Non Stress Test [RC] PER UNIT ROUTINE Care 08/21/19 07:10 Ordered Notify Provider [RC] ASDIRECTED Care 08/21/19 07:10 Ordered Notify Provider [RC] PRN Care 08/21/19 07:10 Ordered Peripheral IV Care [RC] . DIRECTED Care 08/21/19 07:10 Ordered Vaginal Exam [RC] ASDIRECTED Care 08/21/19 07:10 Ordered Vital Signs [RC] ASDIRECTED Care 08/21/19 07:10 Ordered Regular Diet [DIET] Diet 08/21/19 Breakfast Ordered CBC W/O DIFF,HEMOGRAM [HEME] Routine Lab 08/21/19 07:09 Ordered RAPID PLASMA REAGIN,RPR [CHEM] Routine Lab 08/21/19 07:10 Ordered TYPE AND SCREEN [BBK] Routine Lab 08/21/19 07:09 Ordered Lactated Ringers [Ringers, Lactated] 1,000 ml Med 08/21/19 07:15 Ordered IV ASDIRECTED Nalbuphine [Nubain] Med 08/21/19 07:09 Ordered 10 mg IVPUSH Q2H PRN Ondansetron [Zofran] Med 08/21/19 07:09 Ordered 4 mg IVPUSH Q4H PRN Oxytocin/Lactated Ringers [Pitocin in LR 10 Units/1,000 Med 08/21/19 07:15 Ordered ML] 10 unit in 1,000 ml IV .CONTINUOUS Oxytocin/Lactated Ringers [Pitocin in LR 10 Units/1,000 Med 08/21/19 07:15 Ordered ML] 10 unit in 1,000 ml IV TITRATE Sodium Chloride 0.9% [Saline Flush] Med 08/21/19 07:09 Ordered 10 ml FLUSH ASDIRECTED PRN Electronic Heart Tones Ext w TOCO [WOMSER] Ot 08/21/19 07:10 Ordered Routine Electronic Heart Tones Internal [WOMSER] Per Unit Ot 08/21/19 07:10 Ordered Routine Peripheral IV Insertion Adult [OM.PC] Routine Ot 08/21/19 07:10 Ordered Resuscitation Status Routine Resus Stat 08/21/19 07:09 Ordered Assessment/Plan Comment:: * Labs done * GBS negative * Plan pitocin and AROM * Pain management per patient preference * Anticipate
[2019-08-21] MEDS ORDERED: Oxytocin/Lactated Ringers 10 UNIT/1,000 ML BAG IV SCH ×2 (07:15)
[2019-08-21] MEDS: Lactated Ringers 1,000 ML IV SCH ×3 (08:13→14:56)
[2019-08-21] MEDS ORDERED: Bupivacaine/fentaNYL/NS 100 ML Bag EPIDUR PRN (13:32)
[2019-08-21] MEDS ORDERED: ePHEDrine 50 MG/ML SDV IVPUSH PRN (13:32)
[2019-08-21] MEDS ORDERED: fentaNYL 100 MCG/2 ML SDV EPIDUR PRN (13:32)
[2019-08-21] MEDS ORDERED: diphenhydrAMINE 50 MG/ML SDV IVPUSH PRN (13:32)
--- NOTE | 2019-08-21 14:51 | PCM.PREANE ---
Preanesthetic Assessment - Procedure Proposed Procedure: Labor Epidural - Anesthesia/Transfusion/Family Hx Anesthesia History: Prior Anesthesia Without Reaction Family History of Anesthesia Reaction: No Transfusion History: No Prior Transfusion(s) Intubation History: Unknown - Review of Systems General: No Symptoms Pulmonary: No Symptoms Cardiovascular: No Symptoms Gastrointestinal: Other (GERD with ) Neurological: Pre-Existing Deficit (Back injury from lifting heavy trees, SI joint on the right can become irritated and painful. ) Other: Reports: None - Physical Assessment Vital Signs: Last Vital Signs Temp 37.1 C 08/21/19 07:10 Pulse 89 08/21/19 07:10 Resp 16 08/21/19 07:10 BP 127/79 08/21/19 07:10 Pulse Ox 100 08/21/19 07:10 Height: 1.8 m Weight: 116.12 kg - Lab Values: Laboratory Last Values WBC 7.83 K/mm3 (3.98-10.04) 08/21/19 07:54 RBC 3.94 M/mm3 (3.98-5.22) L 08/21/19 07:54 Hgb 11.2 gm/dl (11.2-15.7) 08/21/19 07:54 Hct 34.9 % (34.1-44.9) 08/21/19 07:54 MCV 88.6 fl (79.4-94.8) 08/21/19 07:54 MCH 28.4 pg (25.6-32.2) 08/21/19 07:54 MCHC 32.1 g/dl (32.2-35.5) L 08/21/19 07:54 RDW Std Deviation 40.2 fL (36.4-46.3) 08/21/19 07:54 Plt Count 236 K/mm3 (182-369) 08/21/19 07:54 MPV 10.3 fl (9.4-12.3) 08/21/19 07:54 Blood Type A POSITIVE 08/21/19 07:54 Gel Antibody Screen Negative 08/21/19 07:54 - Allergies Allergies/Adverse Reactions: Allergies Allergy/AdvReac Type Severity Reaction Status Date / Time acetaminophen [From Tylenol] Allergy Hives Verified 08/21/19 08:04 - Acknowledgements Anesthesia Type Planned: Epidural Pt an Appropriate Candidate for the Planned Anesthesia: Yes Alternatives and Risks of Anesthesia Discussed w Pt/Guardian: Yes Pt/Guardian Understands and Agrees with Anesthesia Plan: Yes PreAnesthesia Questionnaire - Past Health History Medical/Surgical History: Denies Medical/Surgical History Other HEENT History: Wears glasses Cardiovascular History: Reports: Other (See Below) (Gestational HTN in 2017) Genitourinary History: Reports: UTI, Recurrent 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 OB/BYN History: 2 vessel cord Neurological History: Reports: Other (See Below) Other Neuro History: spots in vision during - Infectious Disease History Infectious Disease History: Reports: Other (See Below) ([place] spotted fever) Other Infectious Disease History: [place] Spotted Fever 1996 - Past Surgical History HEENT Surgical History: Reports: Oral Surgery - SUBSTANCE USE Smoking Status *Q: Never Smoker Recreational Drug Use History: No - HOME MEDS Home Medications: Home Meds Pnv No.95/Ferrous Fum/Folic AC [ Tablet] 1 tab PO DAILY 04/23/19 [ History] - CURRENT (IN HOUSE) MEDS Current Meds: Current Medications Diphenhydramine HCl (Benadryl) 25 mg IVPUSH Q6H PRN PRN Reason: pruritis Ephedrine Sulfate (Ephedrine Sulfate) 5 mg IVPUSH ASDIRECTED PRN PRN Reason: Hypotension Fentanyl (Sublimaze) 100 mcg EPIDUR Q3H PRN PRN Reason: Pain Last Admin: 08/21/19 13:50 Dose: 100 mcg Fentanyl/Bupivacaine HCl (Fentanyl/Bupivacaine/Ns 2 Mcg-0.125% 100 Ml) 100 ml EPIDUR ASDIRECTED PRN PRN Reason: Pain Last Admin: 08/21/19 13:51 Dose: 100 ml Lactated Ringer's (Ringers, Lactated) 1,000 mls @ 40 mls/hr IV ASDIRECTED AROLDO Last Admin: 08/21/19 13:55 Dose: 40 mls/hr Oxytocin/Lactated Ringer's (Pitocin In Lr 10 Units/1,000 Ml) 10 unit in 1,000 mls @ 12 mls/hr IV TITRATE AROLDO; Protocol Last Titration: 08/21/19 12:32 Dose: 18 munits/min, 108 mls/hr Oxytocin/Lactated Ringer's (Pitocin In Lr 10 Units/1,000 Ml) 10 unit in 1,000 mls @ 500 mls/hr IV .CONTINUOUS AROLDO Nalbuphine HCl (Nubain) 10 mg IVPUSH Q2H PRN PRN Reason: Pain Ondansetron HCl (Zofran) 4 mg IVPUSH Q4H PRN PRN Reason: Nausea/Vomiting Sodium Chloride (Saline Flush) 10 ml FLUSH ASDIRECTED PRN PRN Reason: Keep Vein Open
--- NOTE | 2019-08-21 16:15 | PCM.DEL ---
L & D Note - General Info Date of Service: 08/21/19 - Delivery Note Labor: Induced by ARM, Induced by Oxytocin Delivery Outcome: Livebirth Infant Delivery Method: Spontaneous Vaginal Delivery-Single Infant Delivery Mode: Spontaneous Presentation: Left Occiput Anterior (KIRSTIE) Nuchal Cord: None Anesthesia Type: Epidural Amniotic Fluid Description: Clear Episiotomy Type: None Laceration: None Placenta: Intact, Spontaneous Cord: 3 Vessels Estimated Blood Loss: 300 : Bulb Syringe, Stimulated, Warmed, Colliers Used, Warmer Used Delivery Comments (Free Text/Narrative):: Patient found to be complete and began pushing. With maternal pushing effort head delivered from an KIRSTIE presentation. No nuchal cord present. With gentle downward traction shoulders and body delivered. placed on maternal abdomen. Cord clamped and cut. Cord blood obtained. Placenta allowed time to separate and expelled intact. Inspection of the perineum showed no lacerations - General Info Date of Service: 08/21/19 - Patient Data Vitals - Most Recent: Last Vital Signs Temp 37.1 C 08/21/19 07:10 Pulse 89 08/21/19 07:10 Resp 16 08/21/19 07:10 BP 127/79 08/21/19 07:10 Pulse Ox 100 08/21/19 07:10 Weight - Most Recent: 116.12 kg Lab Results Last 24 Hours: Laboratory Results - last 24 hr 08/21/19 08/21/19 Range/Units 07:54 07:54 WBC 7.83 (3.98-10.04) K/mm3 RBC 3.94 L (3.98-5.22) M/mm3 Hgb 11.2 (11.2-15.7) gm/dl Hct 34.9 (34.1-44.9) % MCV 88.6 (79.4-94.8) fl MCH 28.4 (25.6-32.2) pg MCHC 32.1 L (32.2-35.5) g/dl RDW Std Deviation 40.2 (36.4-46.3) fL Plt Count 236 (182-369) K/mm3 MPV 10.3 (9.4-12.3) fl Blood Type A POSITIVE Gel Antibody Screen Negative Med Orders - Current: Current Medications Diphenhydramine HCl (Benadryl) 25 mg IVPUSH Q6H PRN PRN Reason: pruritis Ephedrine Sulfate (Ephedrine Sulfate) 5 mg IVPUSH ASDIRECTED PRN PRN Reason: Hypotension Fentanyl (Sublimaze) 100 mcg EPIDUR Q3H PRN PRN Reason: Pain Last Admin: 08/21/19 13:50 Dose: 100 mcg Fentanyl/Bupivacaine HCl (Fentanyl/Bupivacaine/Ns 2 Mcg-0.125% 100 Ml) 100 ml EPIDUR ASDIRECTED PRN PRN Reason: Pain Last Admin: 08/21/19 13:51 Dose: 100 ml Lactated Ringer's (Ringers, Lactated) 1,000 mls @ 40 mls/hr IV ASDIRECTED AROLDO Last Admin: 08/21/19 14:56 Dose: 40 mls/hr Oxytocin/Lactated Ringer's (Pitocin In Lr 10 Units/1,000 Ml) 10 unit in 1,000 mls @ 12 mls/hr IV TITRATE AROLDO; Protocol Last Titration: 08/21/19 12:32 Dose: 18 munits/min, 108 mls/hr Oxytocin/Lactated Ringer's (Pitocin In Lr 10 Units/1,000 Ml) 10 unit in 1,000 mls @ 500 mls/hr IV .CONTINUOUS AROLDO Nalbuphine HCl (Nubain) 10 mg IVPUSH Q2H PRN PRN Reason: Pain Ondansetron HCl (Zofran) 4 mg IVPUSH Q4H PRN PRN Reason: Nausea/Vomiting Sodium Chloride (Saline Flush) 10 ml FLUSH ASDIRECTED PRN PRN Reason: Keep Vein Open - Problem List & Annotations (1) Single umbilical artery SNOMED Code(s): 753048800 Code(s): Q27.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 Status: Acute Current Visit: Yes (2) 39 weeks gestation of SNOMED Code(s): 74923254 Code(s): Z3A.39 - 39 WEEKS GESTATION OF Status: Acute Current Visit: No (3) Vaginal delivery SNOMED Code(s): 123581320 Code(s): O80 - ENCOUNTER FOR FULL-TERM UNCOMPLICATED DELIVERY Status: Acute Current Visit: No - Problem List Review Problem List Initiated/Reviewed/Updated: Yes - My Orders Last 24 Hours: My Active Orders 08/21/19 07:09 Nalbuphine [Nubain] 10 mg IVPUSH Q2H PRN Ondansetron [Zofran] 4 mg IVPUSH Q4H PRN Sodium Chloride 0.9% [Saline Flush] 10 ml FLUSH ASDIRECTED PRN Resuscitation Status Routine 08/21/19 07:10 Patient Status [ADT] Routine Communication Order [RC] ASDIRECTED Communication Order [RC] ASDIRECTED Communication Order [RC] ASDIRECTED Notify Provider [RC] ASDIRECTED Notify Provider [RC] PRN Peripheral IV Care [RC] Q2HR Electronic Heart Tones Ext w TOCO [WOMSER] Routine Electronic Heart Tones Internal [WOMSER] Per Unit Routine Peripheral IV Insertion Adult [OM.PC] Routine 08/21/19 07:15 Lactated Ringers [Ringers, Lactated] 1,000 ml IV ASDIRECTED Oxytocin/Lactated Ringers [Pitocin in LR 10 Units/1,000 ML] 10 unit in 1,000 ml IV .CONTINUOUS Oxytocin/Lactated Ringers [Pitocin in LR 10 Units/1,000 ML] 10 unit in 1,000 ml IV TITRATE 08/21/19 07:54 RAPID PLASMA REAGIN,RPR [CHEM] Routine 08/21/19 Breakfast Regular Diet [DIET] - Assessment Assessment:: PPD#0 - Plan Plan:: * Routine cares * Breast feeding * Discharge home in 1-2 days
[2019-08-21] MEDS ORDERED: Benzocaine/Menthol 20%-0.5% Spray 56 GM Canister TOP PRN (17:57)
[2019-08-21] MEDS ORDERED: Acetaminophen 325 MG Tab PO PRN (17:57)
[2019-08-21] MEDS ORDERED: Witch Hazel Medicated Pads 40/Jar TOP PRN (17:57)
[2019-08-21] MEDS ORDERED: Docusate Sodium 100 MG Cap PO PRN (17:57)
[2019-08-21] MEDS: Ibuprofen 600 MG Tab PO PRN (18:17)
[2019-08-22] MEDS ORDERED: Bupivacaine 0.25% 10 ML SDV ONE
[2019-08-22] MEDS: Ibuprofen 600 MG Tab PO PRN ×2 (00:21→06:31)
--- NOTE | 2019-08-22 07:53 | PCM.PNPP ---
- General Info Date of Service: 08/22/19 Functional Status: Reports: Pain Controlled, Tolerating Diet, Ambulating, Urinating - Review of Systems General: Reports: No Symptoms Pulmonary: Reports: No Symptoms Cardiovascular: Reports: No Symptoms Gastrointestinal: Reports: Abdominal Pain Genitourinary: Reports: No Symptoms Musculoskeletal: Reports: No Symptoms Skin: Reports: No Symptoms Neurological: Reports: No Symptoms - General Info Date of Service: 08/22/19 - Patient Data Vital Signs - Most Recent: Last Vital Signs Temp 36.7 C 08/22/19 02:58 Pulse 68 08/22/19 02:58 Resp 16 08/22/19 02:58 BP 131/74 08/22/19 02:58 Pulse Ox 99 08/22/19 02:58 Weight - Most Recent: 116.12 kg I&O - Last 24 Hours: Intake & Output 08/21/19 08/22/19 08/22/19 22:59 06:59 14:59 Intake Total 4100 Output Total 650 Balance 3450 Lab Results - Last 24 Hours: Laboratory Results - last 24 hr 08/21/19 08/21/19 08/21/19 Range/Units 07:54 07:54 07:54 WBC 7.83 (3.98-10.04) K/mm3 RBC 3.94 L (3.98-5.22) M/mm3 Hgb 11.2 (11.2-15.7) gm/dl Hct 34.9 (34.1-44.9) % MCV 88.6 (79.4-94.8) fl MCH 28.4 (25.6-32.2) pg MCHC 32.1 L (32.2-35.5) g/dl RDW Std Deviation 40.2 (36.4-46.3) fL Plt Count 236 (182-369) K/mm3 MPV 10.3 (9.4-12.3) fl RPR Non-reactive (NONREACTIVE) Blood Type A POSITIVE Gel Antibody Screen Negative Med Orders - Current: Current Medications Benzocaine/Menthol (Dermoplast Pain Relief [place]) 0 gm TOP ASDIRECTED PRN PRN Reason: Perineal Comfort Measure Docusate Sodium (Colace) 100 mg PO BID PRN PRN Reason: Constipation Last Admin: 08/21/19 18:17 Dose: 100 mg Ibuprofen (Motrin) 600 mg PO Q6H PRN PRN Reason: Mild pain or fever Last Admin: 08/22/19 06:31 Dose: 600 mg Witch [place]aja (Tucks) 1 pad TOP ASDIRECTED PRN PRN Reason: Perineal Comfort Measure Discontinued Medications Acetaminophen (Tylenol) 650 mg PO Q4H PRN PRN Reason: mild pain or fever Diphenhydramine HCl (Benadryl) 25 mg IVPUSH Q6H PRN PRN Reason: pruritis Ephedrine Sulfate (Ephedrine Sulfate) 5 mg IVPUSH ASDIRECTED PRN PRN Reason: Hypotension Fentanyl (Sublimaze) 100 mcg EPIDUR Q3H PRN PRN Reason: Pain Last Admin: 08/21/19 13:50 Dose: 100 mcg Fentanyl/Bupivacaine HCl (Fentanyl/Bupivacaine/Ns 2 Mcg-0.125% 100 Ml) 100 ml EPIDUR ASDIRECTED PRN PRN Reason: Pain Last Admin: 08/21/19 13:51 Dose: 100 ml Lactated Ringer's (Ringers, Lactated) 1,000 mls @ 40 mls/hr IV ASDIRECTED AROLDO Last Admin: 08/21/19 14:56 Dose: 40 mls/hr Oxytocin/Lactated Ringer's (Pitocin In Lr 10 Units/1,000 Ml) 10 unit in 1,000 mls @ 12 mls/hr IV TITRATE AROLDO; Protocol Last Titration: 08/21/19 15:52 Dose: 999 mls/hr Oxytocin/Lactated Ringer's (Pitocin In Lr 10 Units/1,000 Ml) 10 unit in 1,000 mls @ 500 mls/hr IV .CONTINUOUS AROLDO Last Admin: 08/21/19 16:17 Dose: 500 mls/hr Nalbuphine HCl (Nubain) 10 mg IVPUSH Q2H PRN PRN Reason: Pain Ondansetron HCl (Zofran) 4 mg IVPUSH Q4H PRN PRN Reason: Nausea/Vomiting Sodium Chloride (Saline Flush) 10 ml FLUSH ASDIRECTED PRN PRN Reason: Keep Vein Open - Interaction Infant Disposition, : in Room with Family Infant Interaction: Holding Infant Feeding: Attempted ; Nursed Fair/Poor, Bottle Fed Support Person: - Recovery Exam Fundal Tone: Firm Fundal Level: 2 Fingerbreadths Below Umbilicus Fundal Placement: Midline Lochia Amount: Small Lochia Color: Rubra/Red Perineum Description: Intact, Minimal Bruising/Swelling Episiotomy/Laceration: None Bladder Status: Voiding Urinary Elimination: Voided - Exam General: Alert, Oriented, Cooperative GI/Abdominal Exam: Soft, Non-Tender Extremities: Normal Inspection Skin: Warm, Dry, Intact - Problem List & Annotations (1) Single umbilical artery SNOMED Code(s): 056017581 Code(s): Q27.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 Status: Acute Current Visit: Yes (2) 39 weeks gestation of SNOMED Code(s): 30754845 Code(s): Z3A.39 - 39 WEEKS GESTATION OF Status: Acute Current Visit: No (3) Vaginal delivery SNOMED Code(s): 978403932 Code(s): O80 - ENCOUNTER FOR FULL-TERM UNCOMPLICATED DELIVERY Status: Acute Current Visit: No - Problem List Review Problem List Initiated/Reviewed/Updated: Yes - My Orders Last 24 Hours: My Active Orders 08/21/19 07:09 Resuscitation Status Routine 08/21/19 17:57 Activity as Tolerated [RC] PER UNIT ROUTINE Vital Signs [RC] 03,09,15,21 Benzocaine/Menthol [Dermoplast Pain Relief [place]] See Dose Instructions TOP ASDIRECTED PRN Docusate Sodium [Colace] 100 mg PO BID PRN Ibuprofen [Motrin] 600 mg PO Q6H PRN witch Jaja [Tucks] 1 pad TOP ASDIRECTED PRN Assess Lochia [WOMSER] Per Unit Routine Assess Uterine Involution [WOMSER] Per Unit Routine Breast Pump [WOMSER] Per Unit Routine Heat Therapy [OM.PC] PRN Ice Therapy [OM.PC] Per Unit Routine Perineal Care [OM.PC] Per Unit Routine Peripheral IV Discontinue [OM.PC] Routine Sitz Bath [OM.PC] Per Unit Routine 08/21/19 Dinner Regular Diet [DIET] 08/22/19 17:57 Heat Therapy [OM.PC] PRN - Assessment Assessment:: PPD#1 - Plan Plan:: * Routine cares * Breast feeding * Discharge home today
--- NOTE | 2019-08-22 07:55 | PCM.DCSUM1 ---
Discharge Summary - Discharge Data Discharge Date: 08/22/19 Discharge Disposition: Home, Self-Care 01 Condition: Good - Referral to Home Health Primary Care Physician: Radha Turner MD - Discharge Diagnosis/Problem(s) (1) Single umbilical artery SNOMED Code(s): 490556556 ICD Code: Q27.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 Status: Acute (2) 39 weeks gestation of SNOMED Code(s): 31042027 ICD Code: Z3A.39 - 39 WEEKS GESTATION OF Status: Acute (3) Vaginal delivery SNOMED Code(s): 029179121 ICD Code: O80 - ENCOUNTER FOR FULL-TERM UNCOMPLICATED DELIVERY Status: Acute - Patient Summary/Data Complications: None Consults: None Recommended Follow-up Testing/Procedures: Follow up in 3 weeks for check Hospital Course: 28 y/o at 39 0/7 wks presented for IOL. Done with pitocin and AROM. Progressed well to complete dilation and underwent an uncomplicated . See delivery note. did well and was discharged home on PPD#1 - Patient Instructions Diet: Regular Diet as Tolerated Activity: As Tolerated Activity, Other: Pelvic rest for 6 weeks Driving: May Drive Today Showering/Bathing: May Shower Showering/Bathing, Other: May Bathe Notify Provider of: Fever, Increased Pain, Swelling and Redness, Drainage, Nausea and/or Vomiting - Discharge Plan *PRESCRIPTION DRUG MONITORING PROGRAM REVIEWED*: No *COPY OF PRESCRIPTION DRUG MONITORING REPORT IN PATIENT AMY: No Home Medications: Home Meds Pnv No.95/Ferrous Fum/Folic AC [ Tablet] 1 tab PO DAILY 04/23/19 [ History] Docusate Sodium [Colace] 100 mg PO BID PRN cap 08/22/19 [Rx] Ibuprofen [Motrin] 600 mg PO Q6H PRN tablet 08/22/19 [Rx] Patient Handouts: Mastitis, [id number], Breast Engorgement, Care After Vaginal Delivery Referrals: Radha Turner MD [Primary Care Provider] - (3 weeks check - can be telehealth ) - Discharge Summary/Plan Comment DC Time >30 min.: No - Patient Data Vitals - Most Recent: Last Vital Signs Temp 36.7 C 08/22/19 02:58 Pulse 68 08/22/19 02:58 Resp 16 08/22/19 02:58 BP 131/74 08/22/19 02:58 Pulse Ox 99 08/22/19 02:58 Weight - Most Recent: 116.12 kg I&O - Last 24 hours: Intake & Output 08/21/19 08/22/19 08/22/19 22:59 06:59 14:59 Intake Total 4100 Output Total 650 Balance 3450 Lab Results - Last 24 hrs: Laboratory Results - last 24 hr 08/21/19 08/21/19 08/21/19 Range/Units 07:54 07:54 07:54 WBC 7.83 (3.98-10.04) K/mm3 RBC 3.94 L (3.98-5.22) M/mm3 Hgb 11.2 (11.2-15.7) gm/dl Hct 34.9 (34.1-44.9) % MCV 88.6 (79.4-94.8) fl MCH 28.4 (25.6-32.2) pg MCHC 32.1 L (32.2-35.5) g/dl RDW Std Deviation 40.2 (36.4-46.3) fL Plt Count 236 (182-369) K/mm3 MPV 10.3 (9.4-12.3) fl RPR Non-reactive (NONREACTIVE) Blood Type A POSITIVE Gel Antibody Screen Negative Med Orders - Current: Current Medications Benzocaine/Menthol (Dermoplast Pain Relief [place]) 0 gm TOP ASDIRECTED PRN PRN Reason: Perineal Comfort Measure Docusate Sodium (Colace) 100 mg PO BID PRN PRN Reason: Constipation Last Admin: 08/21/19 18:17 Dose: 100 mg Ibuprofen (Motrin) 600 mg PO Q6H PRN PRN Reason: Mild pain or fever Last Admin: 08/22/19 06:31 Dose: 600 mg Witch Cherelle (Tucks) 1 pad TOP ASDIRECTED PRN PRN Reason: Perineal Comfort Measure Discontinued Medications Acetaminophen (Tylenol) 650 mg PO Q4H PRN PRN Reason: mild pain or fever Diphenhydramine HCl (Benadryl) 25 mg IVPUSH Q6H PRN PRN Reason: pruritis Ephedrine Sulfate (Ephedrine Sulfate) 5 mg IVPUSH ASDIRECTED PRN PRN Reason: Hypotension Fentanyl (Sublimaze) 100 mcg EPIDUR Q3H PRN PRN Reason: Pain Last Admin: 08/21/19 13:50 Dose: 100 mcg Fentanyl/Bupivacaine HCl (Fentanyl/Bupivacaine/Ns 2 Mcg-0.125% 100 Ml) 100 ml EPIDUR ASDIRECTED PRN PRN Reason: Pain Last Admin: 08/21/19 13:51 Dose: 100 ml Lactated Ringer's (Ringers, Lactated) 1,000 mls @ 40 mls/hr IV ASDIRECTED AROLDO Last Admin: 08/21/19 14:56 Dose: 40 mls/hr Oxytocin/Lactated Ringer's (Pitocin In Lr 10 Units/1,000 Ml) 10 unit in 1,000 mls @ 12 mls/hr IV TITRATE AROLDO; Protocol Last Titration: 08/21/19 15:52 Dose: 999 mls/hr Oxytocin/Lactated Ringer's (Pitocin In Lr 10 Units/1,000 Ml) 10 unit in 1,000 mls @ 500 mls/hr IV .CONTINUOUS AROLDO Last Admin: 08/21/19 16:17 Dose: 500 mls/hr Nalbuphine HCl (Nubain) 10 mg IVPUSH Q2H PRN PRN Reason: Pain Ondansetron HCl (Zofran) 4 mg IVPUSH Q4H PRN PRN Reason: Nausea/Vomiting Sodium Chloride (Saline Flush) 10 ml FLUSH ASDIRECTED PRN PRN Reason: Keep Vein Open
--- NOTE | 2019-08-22 09:41 | PCM48HPAN ---
Post Anesthesia Note - EVALUATION WITHIN 48HRS OF ANESTHETIC Vital Signs in Normal Range: Yes Patient Participated in Evaluation: Yes Respiratory Function Stable: Yes Airway Patent: Yes Cardiovascular Function Stable: Yes Hydration Status Stable: Yes Pain Control Satisfactory: Yes Nausea and Vomiting Control Satisfactory: Yes Mental Status Recovered: Yes Vital Signs: Last Vital Signs Temp 36.8 C 08/22/19 08:22 Pulse 86 08/22/19 08:22 Resp 16 08/22/19 08:22 BP 129/69 08/22/19 08:22 Pulse Ox 96 08/22/19 08:22
[2019-08-22 17:04] VITALS: BP 138/71; PULSE 81
== END 2019-08-22 18:00 | disposition home or self-care (01) | DRG 560 ==
LOC: JD.OB 06:54 → OBSVTOIN 15:51 → JD.OB 15:52
PROVIDERS: ADMIT Obstetrics & Gynecology; ATTEND Obstetrics & Gynecology
PROC: 10E0XZZ Delivery of Products of Conception, External Approach (ICD-10-PCS; principal; 2019-08-21)
PROC: 10907ZC Drainage of Amniotic Fluid, Therapeutic from Products of Conception, Via Natural or Artificial Opening (ICD-10-PCS; 2019-08-21)
PROC: 3E033VJ Introduction of Other Hormone into Peripheral Vein, Percutaneous Approach (ICD-10-PCS; 2019-08-21)
PROC: 3E0R3BZ Introduction of Anesthetic Agent into Spinal Canal, Percutaneous Approach (ICD-10-PCS; 2019-08-21)
DX: O75.89 Other specified complications of labor and delivery (principal); Z3A.39 39 weeks gestation of pregnancy; Z37.0 Single live birth; Q27.0 Congenital absence and hypoplasia of umbilical artery
CPT/HCPCS: 01967; 36415; 51702; 59025; 59409; 85027; 86592; 86850; 86900; 86901; A9270-GY; J2590; J3010; J3490; J7120